=== PATIENT | female | born 1980 | race Caucasian/White ===

== ENCOUNTER 2020-10-23 13:20 | Outpatient (REF) | payer OTHER, SELFPAY ==
[2020-10-24 15:36] LABS: C. trachomatis RNA TMA NOT DETECTED (NOT DETECTED); N. gonorrhoeae RNA TMA NOT DETECTED (NOT DETECTED)
[2020-10-26 06:12] LABS: HPV mRNA E6/E7 rflx Not Detected (Not Detected)
== END 2020-10-23 13:21 | disposition home or self-care (01) ==
LOC: HO.LAB 13:20
PROVIDERS: PCP Hospitalist; Visit Provider Advanced Practice Midwife
DX: Z01.419 Encounter for gynecological examination (general) (routine) without abnormal findings (principal); Z11.51 Encounter for screening for human papillomavirus (HPV); E66.9 Obesity, unspecified; Z68.32 Body mass index [BMI] 32.0-32.9, adult; Z20.2 Contact with and (suspected) exposure to infections with a predominantly sexual mode of transmission
CPT/HCPCS: 36415; 87491; 87591; 87624; 88142

== ENCOUNTER 2021-07-01 10:53 | Outpatient (REF) | payer OTHER, SELFPAY ==
[2021-07-01 14:28] LABS: Anion Gap 11 (12-20); Blood Urea Nitrogen 13 mg/dL (9-16); Calcium 9.2 mg/dL (8.4-10.2); Carbon Dioxide 28 mmol/L (22-29); Chloride 106 mmol/L (96-108); Estimated Glomerular Filt Rate > 60; Glucose Random 101 mg/dL (60-115); Potassium 4.5 mmol/L (3.3-5.1); Sodium 140 mmol/L (135-145)
== END 2021-07-01 10:54 | disposition home or self-care (01) ==
LOC: HO.WFDLDS 10:53
PROVIDERS: Visit Provider Hospitalist
DX: Z00.00 Encounter for general adult medical examination without abnormal findings (principal)
CPT/HCPCS: 36415; 80048

== ENCOUNTER → 2021-10-27 14:24 | Outpatient (BNVA) | payer OTHER, SELFPAY | PROVIDERS: Visit Provider Advanced Practice Midwife ==

== ENCOUNTER 2021-11-27 12:37 | Outpatient (REF) | payer OTHER, SELFPAY ==
--- NOTE | ~2021-11-27 | MM_ITS ---
EXAMINATION: MM SCREENING DIGITAL BREAST TOMOSYNTHESIS, BILATERAL CLINICAL INFORMATION: Screening. Asymptomatic. The lifetime risk of breast cancer based on the Tyrer-Cuzick Model is 14.6%. COMPARISON: Mammography: June 22, 2019 TECHNIQUE: Digital breast tomosynthesis is performed in both the craniocaudal and mediolateral oblique views along with computer-aided detection (CAD). Synthesized 2D images are generated from the tomosynthesis. FINDINGS: The breasts are heterogeneously dense, which may obscure small masses (ACR BI-RADS breast composition Category c). There are no significant masses, abnormal calcifications, or other abnormalities. MM/MM tomosynthesis screening BI IMPRESSION: There are no significant changes from prior study. ASSESSMENT: BI-RADS 1: Negative RECOMMENDATION: Routine annual mammography screening. This patient's information was entered into a reminder system with a target due date for their next mammogram.
== END 2021-11-27 12:38 | disposition home or self-care (01) ==
LOC: HO.MAMMO 12:37
PROVIDERS: PCP Hospitalist; Visit Provider Advanced Practice Midwife
DX: Z12.31 Encounter for screening mammogram for malignant neoplasm of breast (principal)
CPT/HCPCS: 77063; 77067

== ENCOUNTER → 2022-10-29 13:01 | Outpatient (BNVA) | payer OTHER, SELFPAY | PROVIDERS: PCP Hospitalist; Visit Provider Advanced Practice Midwife ==

== ENCOUNTER 2022-12-04 13:48 | Outpatient (REF) | payer OTHER, SELFPAY ==
--- NOTE | ~2022-12-04 | MM_ITS ---
EXAMINATION: MM SCREENING DIGITAL BREAST TOMOSYNTHESIS, BILATERAL CLINICAL INFORMATION: Screening. Asymptomatic. The lifetime risk of breast cancer based on the Tyrer-Cuzick Model is 13%. COMPARISON: Mammography: November 27, 2021 and June 22, 2019 TECHNIQUE: Digital breast tomosynthesis is performed in both the craniocaudal and mediolateral oblique views along with computer-aided detection (CAD). Synthesized 2D images are generated from the tomosynthesis. FINDINGS: The breasts are heterogeneously dense, which may obscure small masses (ACR BI-RADS breast composition Category c). There are no significant masses, abnormal calcifications, or other abnormalities. MM/MM tomosynthesis screening BI IMPRESSION: No significant changes from prior exam. ASSESSMENT: BI-RADS 1: Negative RECOMMENDATION: Routine annual mammography screening. This patient's information was entered into a reminder system with a target due date for their next mammogram.
== END 2022-12-04 13:49 | disposition home or self-care (01) ==
LOC: HO.MAMMO 13:48
PROVIDERS: PCP Hospitalist; Visit Provider Hospitalist
DX: Z12.31 Encounter for screening mammogram for malignant neoplasm of breast (principal)
CPT/HCPCS: 77063; 77067

== ENCOUNTER 2023-12-10 09:54 | Outpatient (AMB) | payer OTHER, SELFPAY ==
--- NOTE | 2023-12-10 10:01 | MHC.OFFVIS ---
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 Doing well with concerns: Urgency and incontinence. She tries to eat healthy and stays active with exercise. Using a Mirena IUD since 06/06/2018. Currently is not sexually active. She denies vaginal itching and irritation. STI screening offered; she declines. Denies family history of breast, ovarian or colon cancer. Last pap smear 2020, negative. Mammogram: 2022. [facility] Medical History Hypertension Obesity (BMI 30-39.9) Surgical History No pertinent past surgical history Family History Family/Other HTN (hypertension) Social History Household Members Other:: daughter Housing: Apartment Alcohol intake: never Patient Tobacco Use Status: Never used Tobacco e-Cigarette/Vaping Use: Never Used Second Hand Smoke Exposure: No Use of substances other than those prescribed or required for medical reasons: Yes Substance Use Type: Marijuana Substance Use Frequency: Daily service: No Current occupational status: unemployed Sexually active: No Sexual orientation: Straight/Heterosexual Gender identity: Female Cognitive needs: No Hearing needs: No Vision needs: No Female Reproductive History Menstrual Age of Menarche: 10 control method: progestin IUCD (Mirena 06/06/2018) Total pregnancies: 4 Full term: 1 Number of Living Children: 1 Ab induced: 2 Ab spontaneous: 1 Date of last pap smear: 10/24/20 Date of Mammogram: 12/04/22 Review of Systems Const All systems reviewed & are unremarkable except as noted in HPI and below Reports as per HPI Eyes Reports no additional complaints ENT Reports no additional complaints Card Reports no additional complaints Resp Reports no additional complaints GI Reports as per HPI and Reports no additional complaints Reports as per HPI Musc Reports no additional complaints Skin/Breast Reports as per HPI Neuro Reports no additional complaints Psych Reports no additional complaints Endo Reports no additional complaints Brady/Lymph Reports no additional complaints Aller/Immun Reports no additional complaints Physical Exam Vital Signs: Last Vital Signs BP 136/80 12/10/23 10:04 BMI result Body Mass Index 32.9 Const General: cooperative, healthy appearing, no acute distress, well developed and alert Orientation/consciousness: patient oriented x3 HEENT Head: Yes normal to inspection Eyes General: appearance normal, both eyes and all related structures Neck Neck: Yes normal visual inspection Thyroid: Thyroid normal Chest Chest palpation & inspection: normal inspection of the chest and other (no puckering, dimpling, peau de orange, retraction, discharge, masses) Breast/axilla inspection: normal inspection of the breasts Breast/axilla palpation: normal palpation of the breasts Resp Effort & Inspection: normal respiratory effort GI Inspection: Yes normal to inspection Palpation (GI): Soft to palpation Rectal Exam - Female: deferred General: Yes bladder normal to palpation External Female Exam: normal external appearance and normal appearance of the urethra Speculum Exam - Vagina: normal appearance of the vagina, normal palpation and normal vaginal discharge Speculum Exam - Cervix: normal appearance of the cervix, normal palpation and Other cervical findings present (IUD strings present) Bimanual exam- vagina & uterus: normal bimanual exam, normal palpation, uterine size normal, bladder normal to palpation, normal palpation and non-tender Bimanual Exam- Adnexa, other: no masses Skin General skin exam: no rashes or lesions noted Rashes: no rashes Neuro General: patient oriented x3 Cognition (Neuro): normal cognition Extrem General: Yes normal to inspection Psych Attitude: cooperative Thought process: Normal thought process present Assessment & Plan Assessment & Plan (1) Encounter for well woman exam with routine gynecological exam: Code(s): Z01.419 - Encounter for gynecological examination (general) (routine) without abnormal findings (2) Urge incontinence of urine: Code(s): N39.41 - Urge incontinence Plan Discussed: Current recommendations for pap smears per ASCCP guidelines. Breast awareness and periodic breast exams. Maintain a healthy lifestyle including a well balanced diet and routine exercise. Use condoms for STI and prevention. Mammogram yearly. Referred to urology for assessment of urge incontinence, also discussed consideration for pelvic floor PT in the future. Patient verbalizes understanding and agrees to the plan of care. She was given opportunity to ask questions and all questions were answered to the best of my ability. 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 This note is constructed using voice recognition software. While every effort has been made to ensure accuracy, recruitment advertising manager errors may have been included. Orders: Referrals Urology Referral N39.41 - Urge incontinence
[2023-12-10 10:04] VITALS: BP 136/80; BMI 32.9
== END 2023-12-10 10:30 | disposition home or self-care (01) ==
PROVIDERS: Visit Provider Advanced Practice Midwife
DX: Z01.419 Encounter for gynecological examination (general) (routine) without abnormal findings (principal); N39.41 Urge incontinence
CPT/HCPCS: 99396

== ENCOUNTER 2023-12-10 14:06 | Outpatient (REF) | payer OTHER, SELFPAY | END 2023-12-10 14:07 | disposition home or self-care (01) | LOC: HO.MAMMO 14:06 | PROVIDERS: PCP Family Medicine; Visit Provider Hospitalist | DX: Z12.31 Encounter for screening mammogram for malignant neoplasm of breast (principal) | CPT/HCPCS: 77063; 77067; 99396 ==

== ENCOUNTER → 2023-12-10 14:15 | Outpatient (BNV) | payer OTHER, SELFPAY | PROVIDERS: PCP Family Medicine; Visit Provider Radiology Diagnostic Radiology | DX: Z12.31 Encounter for screening mammogram for malignant neoplasm of breast (principal) | CPT/HCPCS: 77063; 77067 ==

== ENCOUNTER 2023-12-14 11:19 | Outpatient (AMB) | payer OTHER, SELFPAY ==
--- NOTE | 2023-12-14 11:21 | MHC.PC.OV ---
Vital Signs 12/14/23 11:22 Height 5 ft 3 in Weight 186 lb 8 oz BMI 33.0 BP 132/80 Blood Pressure Location Lt brachial Position Sitting Pulse 92 Pulse Source Pulse Oximeter Pulse Oximetry (%) 98 Oxygen Delivery Method Room Air Intake Visit Reasons: Transfer of care SV , HTN Intake Note: Patient is here to follow up on HTN and medication refill. Basket Mender Required: No Clinical Nursing Director: Not Required per policy Accompanied by: Self / Same As Patient Allergies lisinopril Allergy (Intermediate, Verified 12/14/23 11:25) cough Medication List - Last Reconciled 12/14/23 by Segundo Wan MD amlodipine 10 mg PO DAILY 3 months blood pressure test kit-medium to take blood pressure daily hydralazine 25 mg PO QID PRN levonorgestrel (Mirena) intrauterine losartan 100 mg PO DAILY Tobacco use date assessed: 12/14/23 Dental Screening Dental Screen Date: 12/14/23 Did you have a dental visit in the last 12 months?: No Did you have a dental problem in the last 6 months where you did not have access to dental care?: No Was dental information given to patient?: Patient declined HPI Transfer of care SV , HTN HPI Details Transfer of Care Prior PCP:?SV Last office visit/CPE: Acute issue(s): Depression/anxiety HTN -BP today 132/80. She is on amlodipine 10mg, losartan 100mg daily. PMHx: Hypertension, depression/anxiety SurgHx: L foot, Oral surgeries FHx: Mom: Lymphoma. Dad: Unknown. SocHx: Nonsmoker, EtOH None/rare. MJ Daily No other drugs HPI Comments History of Present Illness Details Documentation assistance for Segundo Wan MD, was provided by Baldo Olmos,? Campaign Consultant on 12/14/2023 11:34 AM ALECIA. Rj, Dr. Wan, have read, observed, and verified documentation. [facility] Medical History (Updated 12/14/23 @ 11:59 by Baldo Olmos) Hypertension Obesity (BMI 30-39.9) Surgical History No pertinent past surgical history Family History Family/Other HTN (hypertension) Social History Household Members Other:: daughter Housing: Apartment Alcohol intake: never Patient Tobacco Use Status: Never used Tobacco e-Cigarette/Vaping Use: Never Used Second Hand Smoke Exposure: No Substance Use Type: Marijuana service: No Current occupational status: unemployed Sexual orientation: Straight/Heterosexual Gender identity: Female Cognitive needs: No Hearing needs: No Vision needs: No Female Reproductive History Menstrual Age of Menarche: 10 Questionnaire PHQ-9 Over the last 2 weeks, how often have you been bothered by any of the following problems? 1. Little interest or pleasure in doing things: more than half the days 2. Feeling down, depressed, or hopeless: several days 3. Trouble falling or staying asleep, or sleeping too much: several days 4. Feeling tired or having little energy: more than half the days 5. Poor appetite or overeating: more than half the days 6. Feeling bad about yourself - or that you are a failure or have let yourself or your family down: several days 7. Trouble concentrating on things, such as reading the newspaper or watching television: not at all 8. Moving or speaking so slowly that other people could have noticed. Or the opposite - being so fidgety or restless that you have been moving around a lot more than usual: not at all 9. Thoughts that you would be better off or of hurting yourself in some way: not at all Total score: 9 Depression Screening Interpretation: Positive (Referred?for?therapy) Depression Screening Done: Yes 24688 - PHQ-9 Billing: Yes Source: Developed by Drs. Mark Anthony Hopper, Libby Hinojosa, Brayan Seals and colleagues, with an educational marcial from [employer]. Thrive Questionnaire Date Thrive assessed: 12/14/23 I am a: Patient What is your living situation today?: I have a steady place to live Within the past 12 months, did the food you bought not last and you didn't have the money to get more?: Never true Within the past 12 months, did you worry whether your food would run out before you got money to buy more?: Never true Do you have trouble paying for medicines?: No Do you have trouble getting transportation to medical appointments?: No Do you have trouble paying your heating and electricity bill?: No Do you have trouble taking care of your child, family member or friend?: No Do you have trouble with day-to-day activities such as bathing, preparing meals, shopping, managing finances, etc.?: No Are you currently unemployed and looking for a job?: Yes Are you interested in more education?: No THRIVE Score: 0 AUDIT C Alcohol Use Questionnaire (AUDIT-C) 1. How often do you have a drink containing alcohol?: Never 3. How often do you have six or more drinks on one occasion?: Never Total Score: 0 GILBERT-7 AMB Questionnaire GILBERT-7 Date GILBERT - 7 assessed: 12/14/23 Feeling nervous, anxious, or on edge: 0 = Not at all Not being able to stop or control worryin = Several days Worrying too much about different things: 2 = More than half the days Trouble relaxin = Not at all Being so restless that it is hard to sit still: 0 = Not at all Becoming easily annoyed or irritable: 0 = Not at all Feeling afraid as if something awful might happen: 0 = Not at all Total GILBERT-7 score (0-4 normal; 5-9 mild; 10-14 moderate; 15-21 severe): 3 Source: Developed by Drs. Mark Anthony Hopper, Libby Hinojosa, Brayan Seals and colleagues, with an educational marcial from [employer]. GILBERT-7 Assessment Billing GILBERT-7 Assessment Tool: GILBERT-7 Assessment 57026 Review of Systems Const Denies chills, Denies fatigue, Denies fever(s), Denies headache(s) and Denies weakness ENT Denies dizziness and Denies headache(s) Card Denies chest pain, Denies lightheadedness, Denies dyspnea and Denies other (Palpitations) Resp Denies cough, Denies dyspnea, Denies wheezing and Denies other ( shortness of breath) Musc Denies numbness and Denies tingling Neuro Denies dizziness, Denies headache(s), Denies numbness, Denies tingling, Denies paresthesias and Denies weakness Psych Reports anxiety and Reports depression Endo Denies fatigue Aller/Immun Denies wheezing Physical exam (Primary Care) Vital Signs: Last Vital Signs Pulse 92 12/14/23 11:22 BP 132/80 12/14/23 11:22 Pulse Ox 98 12/14/23 11:22 Oxygen Delivery Method Room Air 12/14/23 11:22 BMI result Body Mass Index 33.0 Tobacco/Smoking Status: Tobacco use Status Tobacco use date assessed 12/14/23 12/14/23 11:34 Patient Tobacco Use Status Never used Tobacco 12/14/23 11:21 e-Cigarette/Vaping Use Never Used 12/14/23 11:21 PHQ-9: PHQ-9 Score PHQ-9: Total score 9 12/14/23 11:43 Depression Screening Interpretation: Positive (Referred?for?therapy) Thrive Assessment: Date of Thrive Assessment Date Thrive assessed 12/14/23 12/14/23 11:34 Const General: no acute distress and well developed Nutritional Appearance: well nourished Orientation/consciousness: patient oriented x3 HENMT Head: Yes normocephalic and Yes atraumatic Eyes General: appearance normal, both eyes and all related structures Pupils: Equal, round and reactive pupils present EOM: EOMs intact bilaterally Resp Effort & Inspection: normal respiratory effort Auscultation: clear to auscultation bilaterally Cardio Rate: regular rate Rhythm: regular rhythm Heart sounds: S1 normal heart sound present, S2 normal heart sound present, no gallops, Murmur heart sound present and no rubs Neuro General: patient oriented x3 and gait normal Cranial nerves: Yes Equal, round and reactive pupils present Psych Affect: normal affect Assessment and Plan Assessment & Plan (1) Hypertension: Code(s): I10 - Essential (primary) hypertension Plan: Blood?pressure?is?controlled.??Goal?is?less?than?140/90 Continue?current?medication (2) Depression with anxiety: Code(s): F41.8 - Other specified anxiety disorders Plan: Intermittent?fluctuations?in?mood?and?mild?depression?and?anxiety?at?times. She?does?note?some?avoid?behavior?when?driving. Will?refer?her?to?the?nurse?navigator?to?connect?her?with?a?therapist (3) Heart murmur: Code(s): R01.1 - Cardiac murmur, unspecified Plan: Faint?2/6?systolic?murmur?over?mitral?region Check?echo (4) Laboratory exam ordered as part of routine general medical examination: Code(s): Z00.00 - Encounter for general adult medical examination without abnormal findings Plan: Check?lab Orders: Orders Comprehensive [place]. Panel Fast Today Z00.00 - Encounter for general adult medical examination without abnormal findings Microalbumin, Random (w Creat) Today I10 - Essential (primary) hypertension TSH reflex Free T4 Today Z00.00 - Encounter for general adult medical examination without abnormal findings UA and rflx microscopic Today Z00.00 - Encounter for general adult medical examination without abnormal findings Lipid Panel Today Z00.00 - Encounter for general adult medical examination without abnormal findings CA echo transthoracic complete Today R01.1 - Cardiac murmur, unspecified Medications: Changed From amlodipine 10 mg PO DAILY 3 months 30 tabs 0RF I10 - Essential (primary) hypertension To amlodipine 10 mg PO DAILY 90 days 90 tabs 3RF I10 - Essential (primary) hypertension From losartan 100 mg PO DAILY 30 tabs 0RF I10 - Essential (primary) hypertension To losartan 100 mg PO DAILY 90 days 90 tabs 3RF I10 - Essential (primary) hypertension Discontinued hydralazine Discontinued Reason: Doctor's Order 25 mg PO QID PRN 120 tabs 5RF for blood pressure Coding Level of Care Code Est Pt Level 3 (51213) Diagnoses Hypertension I10 Depression with anxiety F41.8 Heart murmur R01.1 Laboratory exam ordered as part of routine general medical examination Z00.00 Additional Codes GILBERT-7 Assessment Billing - GILBERT-7 Assessment Tool: GILBERT-7 Assessment [id number] ([id number])
[2023-12-14 11:22] VITALS: BP 132/80; PULSE 92; O2SAT 98; BMI 33.0
== END 2023-12-14 12:38 | disposition home or self-care (01) ==
PROVIDERS: PCP Family Medicine; Visit Provider Family Medicine
DX: I10 Essential (primary) hypertension (principal); R01.1 Cardiac murmur, unspecified; F41.8 Other specified anxiety disorders
CPT/HCPCS: 96127; 99213

== ENCOUNTER → 2024-01-06 09:56 | Outpatient (REF) | payer OTHER, SELFPAY ==
--- NOTE | 2024-01-06 09:58 | CA_ITS ---
Transthoracic Echocardiogram Patient (Last, First, Middle): SusanMay, Gender: Female Date of : 1980 Age: 43 Procedure Date: 01/06/2024 Procedure Type: Transthoracic Echocardiogram Location: OP Height: 160.02 cm Weight: 83.46 kg BSA: 1.87 m2 Heart Rate: 85 bpm BP: 112 / 78 mmHg Document Restorer: DREW Referring MD: Segundo Wan MD Edger Liner: Sudeep Diaz MD Symptoms: R01.1 - Cardiac murmur, unspecified Study Quality: Adequate ECG Rhythm: Sinus Conclusions: - Essentially normal study Findings Left Ventricle Normal left ventricular size, thickness, and systolic function. The visually estimated ejection fraction is between 60-65%. Spectral Doppler is indicative of a normal filling pattern. Peak GLS is -20.5%, within normal limits. Right Ventricle Normal right ventricular cavity size and systolic function. Atria Both atria are normal in size. Interatrial shunt cannot be excluded. Aortic Valve Normal aortic valve structure and function. There is no aortic valve stenosis. There is no aortic valve regurgitation. Mitral Valve Normal mitral valve structure and function. There is trace mitral valve regurgitation. There is no mitral valve stenosis. Pulmonic Valve The pulmonic valve is likely normal. Tricuspid Valve Normal tricuspid valve structure. Tricuspid regurgitation envelope is inadequate for calculation of right ventricular systolic pressure. Normal right atrial pressure. There is no evidence of pulmonary hypertension. Great Vessels All visible segments of the aorta are normal in size. The pulmonary artery was not well visualized. Venous The inferior vena cava is normal in size and collapses greater than 50% with inspiration. Pericardium/Pleural There is no evidence of pericardial effusion. Prior Study Comparison No prior study available for comparison. Measurements 2D Linear Measurements IVSd: 0.86 0.6-0.9/0.6-1.0 cm LVIDd: 4.44 3.9-5.3/4.2-5.9 cm LVIDd Index: 2.37 2.4-3.2/2.2-3.1 cm/m2 LVIDs: 2.91 2.0-3.6 cm LVPWd: 0.53 0.7-1.1 cm LA Diam: 3.10 2.7-3.8/3.0-4.0 cm LAIDs Index: 1.66 1.5-2.3 cm/m2 LV Mass: 115.05 67-162/88-224 g LV Mass Index: 61.53 43-95/49-115 g/m2 LVOT Diam: 2.00 3.0+(-)1.3 cm 2D Systolic Function EF 4C: 45.10 >55% EF 2C: 65.30 >55% EF BiP: 57.50 >55% Mitral Valve MV Pk E: 0.81 MV PK A: 0.70 MV Decel Time: 149.00 E/A: 1.20 E'Lateral: 10.90 E'Medial: 8.38 E/E' Med: 9.60 E/E' Lat: 7.40 PHT: 44.00 MVA PHT: 5.00 Decel Gregg: 5.39 Aortic Valve AoV Pk Desmond: 1.34 AoV Pk Grad: 7.00 LEXIS: 2.79 LVOT LVOT Pk Desmond: 1.16 LVOT Mn Desmond: 0.74 LVOT VTI: 0.23 LVOT Pk Grad: 5.00 LVOT Mn Grad: 3.00 LVOT Diam: 2.00 LVOT Area: 3.14 Diastolic Function MV Pk E: 0.81 MV Pk A: 0.70 E/A: 1.20 E'Medial: 8.38 E/E' Med: 9.60 E' Laterial: 10.90 E/E' Lat: 7.40 Right Ventricle TAPSE (mm): 21.20 TVS' Desmond: 11.90 Tricuspid Valve RA Press: 3.00 Great Vessels Aorta Sinus of Valsalva: 3.10 2.0-3.5 cm Ao Asc: 3.30 2.1-3.4 cm Ao Arch: 2.30 Ao Desc: 1.50 Pulmonary Valve PV Pk Desmond: 1.03 Peak PV Grad: 4.00 Updated in Other Vendor System with Status of Final Sudeep Diaz MD electronically signed on 01/06/2024 7:03:05 PM with status of Final
== END ==
LOC: HO.CARD 09:56
PROVIDERS: Visit Provider Family Medicine
DX: R01.1 Cardiac murmur, unspecified (principal)
CPT/HCPCS: 93306; 93356

== ENCOUNTER → 2024-01-06 09:58 | Outpatient (BNV) | payer OTHER, SELFPAY | PROVIDERS: Visit Provider Internal Medicine Cardiovascular Disease | DX: R01.1 Cardiac murmur, unspecified (principal) | CPT/HCPCS: 93306; 93356 ==

== ENCOUNTER 2024-02-04 13:02 | Outpatient (AMB) | payer OTHER, SELFPAY ==
--- NOTE | 2024-02-04 13:01 | MHC.OFFVIS ---
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 Wan. She has a past medical history of hypertension and obesity. She presents to the office today as a new patient for stress incontinence/urge incontinence. In discussion with the patient today she reports symptoms have been present since having having her one and only child. She reports having had one vaginal of a full term baby. She reports however feels they are worsening since then. She reports previously following up with a urologist many years ago however was told everything was normal. She reports utilizing 1-3 pads daily. She otherwise denies nocturia, hematuria, dysuria, foul smelling urine, changes to urinary stream, flank pain, fever, and or chills. In office urinalysis results reviewed with the patient today. PVR 0 mL. Discussed at length potential causes of lower urinary tract symptoms patient is experiencing as well as further treatment options. Pelvic floor information provided. She otherwise denies any other issues or concerns at this time. [facility] Medical History Hypertension Obesity (BMI 30-39.9) Surgical History No pertinent past surgical history Family History Family/Other HTN (hypertension) Social History Household Members Other:: daughter Housing: Apartment Alcohol intake: never Patient Tobacco Use Status: Never used Tobacco e-Cigarette/Vaping Use: Never Used Second Hand Smoke Exposure: No Substance Use Type: Marijuana service: No Current occupational status: unemployed Sexual orientation: Straight/Heterosexual Gender identity: Female Cognitive needs: No Hearing needs: No Vision needs: No Female Reproductive History Menstrual Age of Menarche: 10 Review of Systems Const All systems reviewed & are unremarkable except as noted in HPI and below Reports as per HPI Eyes Reports no additional complaints ENT Reports no additional complaints Card Reports as per HPI Resp Reports no additional complaints GI Denies abdominal pain and Denies nausea Musc Denies no additional complaints Neuro Reports no additional complaints Physical Exam Const General: cooperative, healthy appearing, comfortable, no acute distress, well developed, alert and awake Orientation/consciousness: patient oriented x3 Limitations: no limitations HEENT Head: Yes normal to inspection, Yes normocephalic and Yes atraumatic Ears: hearing grossly normal bilaterally Eyes General: appearance normal, both eyes and all related structures Neck Neck: Yes normal visual inspection and Yes trachea midline Chest Chest palpation & inspection: normal inspection of the chest Resp Effort & Inspection: normal respiratory effort and able to speak in complete sentences Cardio Rate: regular rate GI Inspection: Yes normal to inspection General: Yes no CVA tenderness Back/Spine/Pelvis Back: no CVA tenderness Skin General skin exam: no rashes or lesions noted Neuro General: patient oriented x3 Extrem General: Yes normal to inspection Psych Appearance: grossly normal and well kempt Mental Status: mental status grossly normal Speech and movement: Normal speech and movement present and Clear speech present Affect: normal affect Attitude: cooperative Thought process: Normal thought process present Thought content: Normal thought content present Insight: Fair insight present (Psych) Judgement: Fair judgement present (Psych) Office Procedures Post Void Residual Post Residual Void Post Void Residual (PVR): 0 [id number] Void Residual by ultrasound Results AMB Urinalysis, Automated UA Leukoctes 0 Howard/uL Last Edit by [employer] on 02/04/24 13:35 UA Nitrite Negative Last Edit by [employer] on 02/04/24 13:35 UA Urobilinogen 0.2 mg/dL Last Edit by [employer] on 02/04/24 13:35 UA Protein 0 mg/dL Last Edit by [employer] on 02/04/24 13:35 UA pH 8.0 Last Edit by [employer] on 02/04/24 13:35 UA Blood 0 Zachary/uL Last Edit by [employer] on 02/04/24 13:35 UA Specific Huggins 1.010 Last Edit by Domonique Gan on 02/04/24 13:35 UA Ketone Negative Last Edit by Domonique Gan on 02/04/24 13:35 UA Bilirubin 0 mg/dL Last Edit by Domonique Gan on 02/04/24 13:35 UA Glucose 0 mg/dL Last Edit by Domonique Gan on 02/04/24 13:35 Results Reviewed Results Reviewed: Laboratory Last Values Urine pH (Auto) 8.0 02/04/24 13:27 Specific Huggins (Auto) 1.010 02/04/24 13:27 Urine Protein (Auto) 0 mg/dL 02/04/24 13:27 Glucose (UA)(Auto) 0 mg/dL 02/04/24 13:27 Urine Ketones (Auto) Negative 02/04/24 13:27 Urine Blood (Auto) 0 Zachary/uL 02/04/24 13:27 Urine Nitrite (Auto) Negative 02/04/24 13:27 Urine Bilirubin (Auto) 0 mg/dL 02/04/24 13:27 Urine Urobilinogen (Auto) 0.2 mg/dL 02/04/24 13:27 Leukocyte Esterase (Auto) 0 Howard/uL 02/04/24 13:27 Assessment & Plan Assessment & Plan (1) Mixed incontinence urge and stress: Code(s): N39.46 - Mixed incontinence Category: Medical Plan In office urinalysis results reviewed with the patient today; as noted above. PVR 0 mL. Discussed at length potential causes for lower urinary tract symptoms patient is experiencing as well as further treatment options; this was discussed at length. Will obtain retroperitoneal ultrasound for further assessment evaluation. Information provided for pelvic floor therapies. Discussed bladder triggers/irritants. Start oxybutynin as discussed and prescribed. Discussed possible near future in office cystoscopy and or urodynamics for further assessment evaluation. Follow-up in 1-3 months with imaging to be completed prior; or sooner with any issues, concerns, and or questions. Orders: Orders AMB Urinalysis Automated 02/04/24 Z13.9 - Encounter for screening, unspecified AMB Post Void Residual by ultrasound 02/04/24 Z13.9 - Encounter for screening, unspecified US retroperitoneal comp 02/04/24 N39.46 - Mixed incontinence Medications: New oxybutynin chloride ER 10 mg PO DAILY 30 tabs 3RF 30 days N32.81 - Overactive bladder Patient Instructions: The patient had an opportunity to ask questions regarding the treatment plan. All questions were answered. Physical exam, labs, and imaging were discussed and reviewed in detail. As well as risks, benefits, and discussion of treatment choices. No major barriers to understanding were identified. The patient expressed understanding and agreement with the above treatment plan. The patient was made aware they should contact our office by phone for worsening of their current condition, the appearance of new symptoms, or with any questions or concerns. Compliance is encouraged with any medications and follow up testing that is ordered. It is a privilege to be allowed the opportunity to participate in? your urological care.? Again, if you have any questions or concerns If you have any questions or concerns please do not hesitate to contact me. The office is [phone]. This note is constructed using voice recognition software. While every effort has been made to ensure accuracy framing and hanging errors may have been included. Yours sincerely, GALO Tripp-BIBIANA Coding Level of Care Code New Pt Level 4 (71358) Diagnoses Mixed incontinence urge and stress N39.46 CPT Codes Post Residual Void - PVR CPT Code: 98387-Dddt Void Residual by ultrasound ([id number])
== END 2024-02-04 13:40 | disposition home or self-care (01) ==
PROVIDERS: PCP Family Medicine; Visit Provider Nurse Practitioner Family
DX: N39.46 Mixed incontinence (principal)
CPT/HCPCS: 99204

== ENCOUNTER → 2024-02-04 13:02 | Outpatient (BNVA) | payer OTHER, SELFPAY | PROVIDERS: PCP Family Medicine; Visit Provider Nurse Practitioner Family | DX: N39.46 Mixed incontinence (principal); N32.81 Overactive bladder | CPT/HCPCS: 51798; 81003; 99202 ==

== ENCOUNTER 2024-03-06 08:51 | Outpatient (REF) | payer OTHER, SELFPAY ==
[2024-03-06 10:22] LABS: Alanine Aminotransferase 40 U/L (0-31); Albumin Level 4.5 g/dL (3.5-5.0); Alkaline Phosphatase 67 U/L (39-117); Anion Gap 13 (12-20); Aspartate Amino Transferase 21 U/L (5-31); Bilirubin Total 0.6 mg/dL (0.0-1.0); Blood Urea Nitrogen 12 mg/dL (9-16); Calcium 8.8 mg/dL (8.4-10.2); Carbon Dioxide 26 mmol/L (22-29); Chloride 107 mmol/L (96-108); Cholesterol 157 mg/dL (<200); Estimated Glomerular Filt Rate > 60; Glucose Fasting 118 mg/dL (60-99); HDL Cholesterol 46 mg/dL (>40); LDL Cholesterol Calculated 93 mg/dL (<100); Potassium 3.8 mmol/L (3.3-5.1); Sodium 142 mmol/L (135-145); Total Protein 7.2 g/dL (6.5-8.0); Triglycerides 91 mg/dL (<150)
[2024-03-06 10:26] LABS: TSH reflex Free T4 1.69 uIU/mL (0.32-4.0)
[2024-03-06 10:34] LABS: Appearance Urine Clear; Color Urine Yellow; Glucose Urine UA Negative (Negative); Leukocyte Esterase Urine Small (1+) (Negative); Nitrite Urine Negative (Negative); UMIC TRIGGER UA YES; Urine Blood Negative (Negative); Urine Ketones Negative (Negative); Urine Protein Negative (Neg-Trace)
[2024-03-06 10:50] LABS: Bacteria Urine 1+ (None Seen); Hyaline Casts Urine 0-2 /LPF (0-2); RBC Urine 0-2 /HPF (0-2); WBC Urine 0-5 /HPF (0-5)
[2024-03-06 11:13] LABS: Microalbum/Creatinine Ratio Ur 3.9 ug/mg cr (<30)
== END 2024-03-06 08:52 | disposition home or self-care (01) ==
LOC: HO.LAB 08:51
PROVIDERS: PCP Family Medicine; Visit Provider Family Medicine
DX: Z00.00 Encounter for general adult medical examination without abnormal findings (principal); I10 Essential (primary) hypertension
CPT/HCPCS: 36415; 80053; 80061; 81001; 82043; 82570; 84443

== ENCOUNTER 2024-03-09 13:40 | Outpatient (AMB) | payer OTHER, SELFPAY ==
[2024-03-09 13:45] VITALS: BP 118/70; PULSE 98; O2SAT 98; BMI 32.8
--- NOTE | 2024-03-09 13:45 | A.OFFPC_ITS ---
Vital Signs 03/09/24 13:45 Height 5 ft 3 in Weight 185 lb BMI 32.8 BP 118/70 Blood Pressure Location Lt brachial Position Sitting Pulse 98 Pulse Source Pulse Oximeter Pulse Oximetry (%) 98 Oxygen Delivery Method Room Air Intake Visit Reasons: Extended exam with f/u labs and health maint. Intake Note: Patient is here for extended exam and follow up on labs and health maintenance. Allergies lisinopril Allergy (Intermediate, Verified 03/09/24 13:50) cough Medication List - Last Reconciled 03/09/24 by Segundo Wan MD amlodipine 10 mg PO DAILY 90 days blood pressure test kit-medium to take blood pressure daily levonorgestrel (Mirena) intrauterine losartan 100 mg PO DAILY 90 days oxybutynin chloride ER 10 mg PO DAILY 30 days Tobacco use date assessed: 03/09/24 Dental Screening Dental Screen Date: 12/14/23 HPI Extended exam with f/u labs and health maint. HPI Details 43 y/o female presents for extended exam with f/u labs and health maintenance. Labs were drawn 03/06/24. Reviewed labs with pt. Elevated fasting glucose of 118. A1c today 03/09/24 5.9%. Elevated ALT of 40. Triglycerides 91. TC 157. LDL 93. HDL 46. Blood pressure today 118/70. She is on amlodipine 10mg daily. A1c today 03/09/24 is 5.9%. [facility] Medical History Hypertension Obesity (BMI 30-39.9) Surgical History No pertinent past surgical history Family History Family/Other HTN (hypertension) Social History Household Members Other:: daughter Housing: Apartment Alcohol intake: never Patient Tobacco Use Status: Never used Tobacco e-Cigarette/Vaping Use: Never Used Second Hand Smoke Exposure: No Substance Use Type: Marijuana service: No Current occupational status: unemployed Sexual orientation: Straight/Heterosexual Gender identity: Female Cognitive needs: No Hearing needs: No Vision needs: No Female Reproductive History Menstrual Age of Menarche: 10 Questionnaire Thrive Questionnaire Date Thrive assessed: 12/14/23 GILBERT-7 AMB Questionnaire GILBERT-7 Date GILBERT - 7 assessed: 12/14/23 Source: Developed by Drs. Mark Anthony Hopper, Libby Hinojosa, Brayan Seals and colleagues, with an educational marcial from [employer]. Review of Systems Const Denies chills, Denies fatigue, Denies fever(s), Denies headache(s) and Denies weakness Eyes Denies change in vision ENT Denies dizziness, Denies headache(s), Denies hearing loss, Denies nasal congestion, Denies sinus pain, Denies sinus pressure and Denies sore throat Card Denies chest pain, Denies lightheadedness, Denies dyspnea and Denies other (palpitations) Resp Denies cough, Denies dyspnea and Denies wheezing GI Denies abdominal pain, Denies melena, Denies hematochezia, Denies change in bowel habits, Denies dyspepsia and Denies nausea Denies hematuria and Denies dysuria Musc Denies abnormal gait, Denies myalgias, Denies arthralgias, Denies numbness and Denies tingling Skin/Breast Denies rash, Denies unusual bruising and Denies wounds Neuro Denies abnormal gait, Denies dizziness, Denies headache(s), Denies memory loss, Denies numbness, Denies Sensory deficit (Neuro), Denies tingling and Denies weakness Psych Denies anxiety, Denies depression and Denies memory loss Endo Denies cold intolerance, Denies fatigue, Denies heat intolerance, Denies polydipsia and Denies polyuria Brady/Lymph Denies easy bleeding and Denies easy bruising Aller/Immun Denies wheezing Physical exam (Primary Care) Vital Signs: Last Vital Signs Pulse 98 03/09/24 13:45 BP 118/70 03/09/24 13:45 Pulse Ox 98 03/09/24 13:45 Oxygen Delivery Method Room Air 03/09/24 13:45 BMI result Body Mass Index 32.8 Tobacco/Smoking Status: Tobacco use Status Tobacco use date assessed 03/09/24 03/09/24 13:55 Patient Tobacco Use Status Never used Tobacco 03/09/24 13:47 e-Cigarette/Vaping Use Never Used 03/09/24 13:47 Thrive Assessment: Date of Thrive Assessment Date Thrive assessed 12/14/23 03/09/24 13:47 Const General: no acute distress, well developed, alert and awake Nutritional Appearance: well nourished Orientation/consciousness: patient oriented x3 [facility] Head: Yes normocephalic and Yes atraumatic Ears: hearing grossly normal bilaterally and TM's normal bilaterally General nose exam: Normal external nose present and Normal nares present Mouth: Normal oral and palatal mucosa present and moist mucous membranes Teeth and gingiva: dentition normal Throat: Yes posterior oropharynx normal Eyes General: appearance normal, both eyes and all related structures Pupils: Equal, round and reactive pupils present and Pupil accommodation reflex normal EOM: EOMs intact bilaterally Neck Neck: Yes normal visual inspection, Yes no lymphadenopathy and Yes trachea midline Thyroid: Thyroid normal Carotids: no bruits Lymphatic: no lymphadenopathy noted Chest Chest palpation & inspection: normal inspection of the chest Resp Effort & Inspection: normal respiratory effort Auscultation: clear to auscultation bilaterally Cardio Rate: regular rate Rhythm: regular rhythm Heart sounds: S1 normal heart sound present, S2 normal heart sound present, no gallops, no murmurs and no rubs Bruits: no abdominal aortic bruits and no carotid bruits GI Palpation (GI): No Abdominal aortic bruit present, Soft to palpation, nontender, No hepatosplenomegaly present and No Rebound tenderness present Auscultation: normal bowel sounds General: Yes no CVA tenderness Back/Spine/Pelvis Back: no CVA tenderness Cervical Spine: cervical ROM normal and No Cervical spine tenderness Thoracic/Lumbar Spine: thoraco-lumbar ROM normal, No pain with thoraco-lumbar ROM, No thoracic spinal tenderness and No lumbar spinal tenderness Skin Lesions: no lesions Rashes: no rashes Trauma: no lacerations or abrasions Wounds: no wounds Nails: normal Neuro General: patient oriented x3 Cranial nerves: Yes Equal, round and reactive pupils present Cognition (Neuro): normal cognition Gait exam (Neuro): Normal gait present Motor exam (neuro): 5/5 motor strength present throughout Sensory Exam: No Sensory deficit (Neuro) Deep tendon reflexes (DTR's): Right patellar reflex intensity grade: 2+ and Left patellar reflex intensity grade: 2+ Extrem General: Yes normal to inspection and No edema Psych Appearance: grossly normal Affect: normal affect Attitude: cooperative Thought process: Normal thought process present Results AMB Hemoglobin A1c AMB Hemoglobin A1c 5.9 % Last Edit by Eunice Mora CMA on 03/09/24 14:40 Assessment and Plan Assessment & Plan (1) Hypertension: Code(s): I10 - Essential (primary) hypertension Plan: Blood?pressure?is?well?controlled.??Goal?is?less?than?140/90 Continue?current?medication (2) Elevated ALT measurement: Code(s): R74.01 - Elevation of levels of liver transaminase levels Plan: Mild?elevation?in?ALT Encouraged?weight?loss,?hydration Will?repeat?in?3?months If?levels?are?the?same?or?higher,?will?check?an?ultrasound (3) Decreased hearing: Code(s): H91.90 - Unspecified hearing loss, unspecified ear Plan: Referred?for?audiology?test (4) Screening for cervical cancer: Code(s): Z12.4 - Encounter for screening for malignant neoplasm of cervix Plan: Up-to-date Follow-up?with?[facility]?manager business process?as?recommended (5) Asymptomatic bacteriuria: Code(s): R82.71 - Bacteriuria Plan: Increase?hydration (6) Breast cancer screening by mammogram: Code(s): Z12.31 - Encounter for screening mammogram for malignant neoplasm of breast Plan: Mammogram?showed?no?evidence?of?malignancy Continue?annual?screen (7) Screening for colon cancer: Code(s): Z12.11 - Encounter for screening for malignant neoplasm of colon Plan: Patient?is?now?due?for?1st?screening?colonoscopy Referred?to?GI (8) Pre-diabetes: Code(s): R73.03 - Prediabetes Plan: A1c?5.9%.??Pre?diabetes. Encouraged?diet?lower?in?sugars?and?starches.??Encouraged?exercise (9) Adult general medical exam: Code(s): Z00.00 - Encounter for general adult medical examination without abnormal findings Plan: 43-year-old?female?presents?for?an?extended?exam Encouraged?healthy?diet?with?active?lifestyle?and?plenty?of?exercise Orders: Orders Hemoglobin A1c Today R73.01 - Impaired fasting glucose AMB Hemoglobin A1c Today Z13.9 - Encounter for screening, unspecified Comprehensive [place]. Panel Fast Today R74.01 - Elevation of levels of liver transaminase levels, Z00.00 - Encounter for general adult medical examination without abnormal findings Referrals Gastroenterology Referral Z12.11 - Encounter for screening for malignant neoplasm of colon Audiology Referral H91.90 - Unspecified hearing loss, unspecified ear Coding Level of Care Code Est Pt Level 4 (29168) Diagnoses Hypertension I10 Elevated ALT measurement R74.01 Decreased hearing H91.90 Screening for cervical cancer Z12.4 Asymptomatic bacteriuria R82.71 Breast cancer screening by mammogram Z12.31 Screening for colon cancer Z12.11 Pre-diabetes R73.03 Adult general medical exam Z00.00
== END 2024-03-09 14:45 | disposition home or self-care (01) ==
PROVIDERS: PCP Family Medicine; Visit Provider Family Medicine
DX: Z00.00 Encounter for general adult medical examination without abnormal findings (principal); I10 Essential (primary) hypertension; R74.01 Elevation of levels of liver transaminase levels; R73.03 Prediabetes; R82.71 Bacteriuria; Z12.31 Encounter for screening mammogram for malignant neoplasm of breast; Z12.11 Encounter for screening for malignant neoplasm of colon
CPT/HCPCS: 83036; 99396

== ENCOUNTER 2024-04-04 13:29 | Outpatient (REF) | payer OTHER, SELFPAY ==
--- NOTE | ~2024-04-04 | US_ITS ---
EXAMINATION: US RETROPERITONEAL COMPLETE (RENAL) CLINICAL INFORMATION: Mixed incontinence. COMPARISON: None available. TECHNIQUE: Real-time imaging of the kidneys and bladder. FINDINGS: RIGHT KIDNEY: 11.8 x 3.9 x 4.7 cm (SAG x AP x TRV). The kidney is normal in size, contour, and echogenicity. Renal cortical thickness is normal. No calculi or focal parenchymal lesions. No hydronephrosis. LEFT KIDNEY: 12.0 x 6.2 x 4.4 cm (SAG x AP x TRV). The kidney is normal in size, contour, and echogenicity. Renal cortical thickness is normal. No calculi or focal parenchymal lesions. No hydronephrosis. BLADDER: Well distended and normal. Bilateral ureteral jets are demonstrated. Prevoid bladder volume is 308 mL. Postvoid bladder volume is 39.0 mL. US/US retroperitoneal comp IMPRESSION: 1. Normal ultrasound of the bilateral kidneys. 2. Small post void residual volume in the urinary bladder. Electronically signed by: Darrius Meza MD 04/27/2024 08:36 PM EDT
== END 2024-04-04 13:30 | disposition home or self-care (01) ==
LOC: HO.US 13:29
PROVIDERS: PCP Family Medicine; Visit Provider Nurse Practitioner Family
DX: N39.46 Mixed incontinence (principal)
CPT/HCPCS: 76770

== ENCOUNTER 2024-04-12 08:55 | Outpatient (REF) | payer OTHER, SELFPAY | END 2024-04-12 08:56 | disposition home or self-care (01) | LOC: HO.SH 08:55 | PROVIDERS: Visit Provider Family Medicine | DX: Z01.118 Encounter for examination of ears and hearing with other abnormal findings (principal); H93.293 Other abnormal auditory perceptions, bilateral | CPT/HCPCS: 92557 ==

== ENCOUNTER 2024-04-18 13:45 | Outpatient (AMB) | payer OTHER, SELFPAY ==
--- NOTE | 2024-04-18 13:48 | MHC.OFFVIS ---
Intake Visit Reasons: 2m/U/S(set) Intake Note: Patient presents today for follow visit to establish treatment for : incontinence and Ultrasound Results Imaging Completed: 04/04/24 Urology Medications: Oxybutynin Allergies to Antibiotic: none Blood Thinner: none PVR: 0ml's Practice Managers Required: No Accompanied by: Self / Same As Patient Allergies lisinopril Allergy (Intermediate, Verified 04/18/24 14:20) cough Medication List - Last Reconciled 04/18/24 by EUGENE Tripp amlodipine 10 mg PO DAILY 90 days blood pressure test kit-medium to take blood pressure daily levonorgestrel (Mirena) intrauterine losartan 100 mg PO DAILY 90 days mirabegron ER (Myrbetriq) 25 mg PO DAILY 30 days HPI Comments Details: Marilee is a very pleasant 43-year-old female patient of Dr. Wan who was accompanied by her daughter at today's office visit. She has a past medical history of hypertension and obesity. She presents to the office today for follow-up. Of note, patient was seen approximately 2 months ago as a new patient for stress incontinence/urge incontinence at which time a retroperitoneal ultrasound was ordered for further assessment evaluation in the patient was started on 10 mg of oxybutynin daily. In discussion with the patient today she reports noting somewhat improvement in urinary frequency however still continues with bothersome urinary frequency, urinary urgency, and mixed urinary incontinence. Recent retroperitoneal ultrasound results reviewed with the patient today. Bilateral kidneys with no calculi, lesions, and or hydronephrosis. The bladder is well distended and normal. Bladder jets are demonstrated. Pre void bladder volume is approximately 300 mL. Postvoid bladder volume is approximately 40 mL. She continues utilizing 1-3 pads daily. She otherwise denies nocturia, hematuria, dysuria, foul smelling urine, changes turinary stream, flank pain, fever, and or chills. In office urinalysis results reviewed with the patient today. PVR 0 mL. Discussed at length potential causes of lower urinary tract symptoms patient is experiencing as well as further treatment options. Pelvic floor information provided. She otherwise denies any other issues or concerns at this time. [facility] Medical History Hypertension Obesity (BMI 30-39.9) Surgical History No pertinent past surgical history Family History Family/Other HTN (hypertension) Social History Household Members Other:: daughter Housing: Apartment Alcohol intake: never Patient Tobacco Use Status: Never used Tobacco e-Cigarette/Vaping Use: Never Used Second Hand Smoke Exposure: No Substance Use Type: Marijuana service: No Current occupational status: unemployed Sexual orientation: Straight/Heterosexual Gender identity: Female Cognitive needs: No Hearing needs: No Vision needs: No Female Reproductive History Menstrual Age of Menarche: 10 Review of Systems Const All systems reviewed & are unremarkable except as noted in HPI and below Reports as per HPI Eyes Reports no additional complaints ENT Reports no additional complaints Card Reports as per HPI Resp Reports no additional complaints GI Denies abdominal pain and Denies nausea Musc Denies no additional complaints Neuro Reports no additional complaints Physical Exam Const General: cooperative, healthy appearing, comfortable, no acute distress, well developed, alert and awake Orientation/consciousness: patient oriented x3 Limitations: no limitations HEENT Head: Yes normal to inspection, Yes normocephalic and Yes atraumatic Ears: hearing grossly normal bilaterally Eyes General: appearance normal, both eyes and all related structures Neck Neck: Yes normal visual inspection and Yes trachea midline Chest Chest palpation & inspection: normal inspection of the chest Resp Effort & Inspection: normal respiratory effort and able to speak in complete sentences Cardio Rate: regular rate GI Inspection: Yes normal to inspection General: Yes no CVA tenderness Back/Spine/Pelvis Back: no CVA tenderness Skin General skin exam: no rashes or lesions noted Neuro General: patient oriented x3 Extrem General: Yes normal to inspection Psych Appearance: grossly normal and well kempt Mental Status: mental status grossly normal Speech and movement: Normal speech and movement present and Clear speech present Affect: normal affect Attitude: cooperative Thought process: Normal thought process present Thought content: Normal thought content present Insight: Fair insight present (Psych) Judgement: Fair judgement present (Psych) Office Procedures Post Void Residual Post Residual Void Post Void Residual (PVR): 0 [id number] Void Residual by ultrasound Results AMB Urinalysis, Automated UA Leukoctes 0 Howard/uL Last Edit by Domonique Gan on 04/18/24 14:17 UA Nitrite Negative Last Edit by [employer] on 04/18/24 14:17 UA Urobilinogen 0.2 mg/dL Last Edit by [employer] on 04/18/24 14:17 UA Protein 15 mg/dL Last Edit by [employer] on 04/18/24 14:17 UA pH 6.0 Last Edit by [employer] on 04/18/24 14:17 UA Blood 0 Zachary/uL Last Edit by [employer] on 04/18/24 14:17 UA Specific Mission 1.025 Last Edit by [employer] on 04/18/24 14:17 UA Ketone Negative Last Edit by [employer] on 04/18/24 14:17 UA Bilirubin 0 mg/dL Last Edit by [employer] on 04/18/24 14:17 UA Glucose 0 mg/dL Last Edit by [employer] on 04/18/24 14:17 Results Reviewed Results Reviewed: Laboratory Last Values Urine pH (Auto) 6.0 04/18/24 14:16 Specific Mission (Auto) 1.025 04/18/24 14:16 Urine Protein (Auto) 15 mg/dL 04/18/24 14:16 Glucose (UA)(Auto) 0 mg/dL 04/18/24 14:16 Urine Ketones (Auto) Negative 04/18/24 14:16 Urine Blood (Auto) 0 Zachary/uL 04/18/24 14:16 Urine Nitrite (Auto) Negative 04/18/24 14:16 Urine Bilirubin (Auto) 0 mg/dL 04/18/24 14:16 Urine Urobilinogen (Auto) 0.2 mg/dL 04/18/24 14:16 Leukocyte Esterase (Auto) 0 Howard/uL 04/18/24 14:16 Date of Service: 04/04/24 EXAMINATION: US RETROPERITONEAL COMPLETE (RENAL) FINDINGS: RIGHT KIDNEY: 11.8 x 3.9 x 4.7 cm (SAG x AP x TRV). The kidney is normal in size, contour, and echogenicity. Renal cortical thickness is normal. No calculi or focal parenchymal lesions. No hydronephrosis. LEFT KIDNEY: 12.0 x 6.2 x 4.4 cm (SAG x AP x TRV). The kidney is normal in size, contour, and echogenicity. Renal cortical thickness is normal. No calculi or focal parenchymal lesions. No hydronephrosis. BLADDER: Well distended and normal. Bilateral ureteral jets are demonstrated. Prevoid bladder volume is 308 mL. Postvoid bladder volume is 39.0 mL. IMPRESSION: 1. Normal ultrasound of the bilateral kidneys. 2. Small post void residual volume in the urinary bladder. Assessment & Plan Assessment & Plan (1) Mixed incontinence urge and stress: Code(s): N39.46 - Mixed incontinence Category: Medical Plan In office urinalysis results reviewed with the patient today; as noted above. PVR 0 mL. Discussed at length potential causes for lower urinary tract symptoms patient is experiencing as well as further treatment options; this was discussed at length. Recent retroperitoneal ultrasound results reviewed with the patient today; as noted above. Information provided for pelvic floor therapies. Discussed bladder triggers/irritants. Stop oxybutynin. Start Myrbetriq as discussed and prescribed. Discussed possible near future in office cystoscopy and or urodynamics for further assessment evaluation. Follow-up in 1-3 months with imaging to be completed prior; or sooner with any issues, concerns, and or questions. Orders: Orders AMB Post Void Residual by ultrasound 04/18/24 N39.46 - Mixed incontinence AMB Urinalysis Automated 04/18/24 Z13.9 - Encounter for screening, unspecified Medications: New mirabegron ER (Myrbetriq) 25 mg PO DAILY 30 tabs 1RF 30 days R39.15 - Urgency of urination, N30.10 - Interstitial cystitis (chronic) without hematuria, R35.1 - Nocturia, N32.81 - Overactive bladder Discontinued oxybutynin chloride ER Discontinued Reason: Doctor's Order 10 mg PO DAILY 30 days 30 tabs 3RF N32.81 - Overactive bladder Patient Instructions: The patient had an opportunity to ask questions regarding the treatment plan. All questions were answered. Physical exam, labs, and imaging were discussed and reviewed in detail. As well as risks, benefits, and discussion of treatment choices. No major barriers to understanding were identified. The patient expressed understanding and agreement with the above treatment plan. The patient was made aware they should contact our office by phone for worsening of their current condition, the appearance of new symptoms, or with any questions or concerns. Compliance is encouraged with any medications and follow up testing that is ordered. It is a privilege to be allowed the opportunity to participate in? your urological care.? Again, if you have any questions or concerns If you have any questions or concerns please do not hesitate to contact me. The office is [phone]. This note is constructed using voice recognition software. While every effort has been made to ensure accuracy senior master scheduler errors may have been included. Yours sincerely, GALO Tripp-BIBIANA Coding Level of Care Code Est Pt Level 4 (73237) Diagnoses Mixed incontinence urge and stress N39.46 CPT Codes Post Residual Void - PVR CPT Code: 07304-Ayts Void Residual by ultrasound ([id number])
== END 2024-04-18 14:24 | disposition home or self-care (01) ==
PROVIDERS: PCP Family Medicine; Visit Provider Nurse Practitioner Family
DX: N39.46 Mixed incontinence (principal)
CPT/HCPCS: 99214

== ENCOUNTER → 2024-04-18 13:45 | Outpatient (BNVA) | payer OTHER, SELFPAY | PROVIDERS: PCP Family Medicine; Visit Provider Nurse Practitioner Family | DX: N39.46 Mixed incontinence (principal) | CPT/HCPCS: 51798; 81003; 99212 ==

== ENCOUNTER 2024-06-07 12:10 | Outpatient (AMB) | payer OTHER, SELFPAY ==
--- NOTE | 2024-06-07 12:10 | A.OFFVIS_ITS ---
Intake Visit Reasons: 7w follow up Intake Note: Patient presents today for televisit follow visit to establish treatment for : incontinence Urology Medication: d/c oxybutynin, myrbetriq Allergies to Antibiotic: none Blood Thinner: none Betting Agency Manager Required: No Accompanied by: Self / Same As Patient Allergies lisinopril Allergy (Intermediate, Verified 06/07/24 12:28) cough Medication List - Last Reconciled 06/07/24 by EUGENE Tripp amlodipine 10 mg PO DAILY 90 days blood pressure test kit-medium to take blood pressure daily levonorgestrel (Mirena) intrauterine losartan 100 mg PO DAILY 90 days mirabegron ER (Myrbetriq) 25 mg PO DAILY 30 days HPI Comments Details: Marilee is a very pleasant 44-year-old female patient of Dr. Wan. She has a past medical history of hypertension and obesity. She is being followed up on today via video telehealth. In discussion with the patient today she reports feeling Myrbetriq 25 mg daily has been helpful in episodes of urinary urgency and frequency she had been experiencing however she does continue to no episodes of stress incontinence. Previous workup has included a retroperitoneal ultrasound 04/15 noting bilateral kidneys with no calculi, lesions, and or hydronephrosis. The bladder is well distended and normal. Bladder jets are demonstrated. Pre void bladder volume is approximately 300 mL. Postvoid bladder volume is approximately 40 mL. She continues utilizing 1-3 pads daily. She otherwise denies nocturia, hematuria, dysuria, foul smelling urine, changes urinary stream, flank pain, fever, and or chills. She had previously trialed oxybutynin with no improvement in lower urinary tract symptoms. Discussed at length potential causes of lower urinary tract symptoms patient is experiencing as well as further treatment options. We discussed pelvic floor exercises. She otherwise denies any other issues or concerns at this time. [facility] Medical History Hypertension Obesity (BMI 30-39.9) Surgical History No pertinent past surgical history Family History Family/Other HTN (hypertension) Social History Household Members Other:: daughter Housing: Apartment Alcohol intake: never Patient Tobacco Use Status: Never used Tobacco e-Cigarette/Vaping Use: Never Used Second Hand Smoke Exposure: No Substance Use Type: Marijuana service: No Current occupational status: unemployed Sexual orientation: Straight/Heterosexual Gender identity: Female Cognitive needs: No Hearing needs: No Vision needs: No Female Reproductive History Menstrual Age of Menarche: 10 Review of Systems Const All systems reviewed & are unremarkable except as noted in HPI and below Reports as per HPI Eyes Reports no additional complaints ENT Reports no additional complaints Card Reports as per HPI Resp Reports no additional complaints GI Denies abdominal pain and Denies nausea Musc Denies no additional complaints Neuro Reports no additional complaints Physical Exam Const General: cooperative, healthy appearing, comfortable, no acute distress, well developed, alert and awake Orientation/consciousness: patient oriented x3 Resp Effort & Inspection: normal respiratory effort and able to speak in complete sentences Neuro General: patient oriented x3 Psych Appearance: grossly normal and well kempt Mental Status: mental status grossly normal Speech and movement: Normal speech and movement present Affect: normal affect Attitude: cooperative Thought process: Normal thought process present Thought content: Normal thought content present Insight: Fair insight present (Psych) Judgement: Fair judgement present (Psych) Telehealth Telehealth Telehealth Platform: [facility] Location of provider rendering services: practice address Location of patient: address on file Patient Identification confirmed using: Name, : Yes Telehealth method: video Patient verbally consented to treatment: Yes Patient verbally consented to billing insurance company: Yes Patient informed of any privacy concerns related to visit: Yes Minutes spent on Phone/Video with Pt.: 15 Assessment & Plan Assessment & Plan (1) Mixed incontinence urge and stress: Code(s): N39.46 - Mixed incontinence Category: Medical Plan Discussed at length potential causes for lower urinary tract symptoms patient is experiencing as well as further treatment options; this was discussed at length. Information provided for pelvic floor therapies. Discussed bladder triggers/irritants. Continue Myrbetriq as discussed and prescribed; refill provided. Discussed in office urodynamics for further assessment evaluation of stress incontinence. Will schedule for urodynamics Follow-up per doctor's orders; or sooner with any issues, concerns, and or questions. Medications: Refilled mirabegron ER (Myrbetriq) 25 mg PO DAILY 30 days 30 tabs 3RF N30.10 - Interstitial cystitis (chronic) without hematuria, N32.81 - Overactive bladder, R35.1 - Nocturia, R39.15 - Urgency of urination Patient Instructions: The patient had an opportunity to ask questions regarding the treatment plan. All questions were answered. Physical exam, labs, and imaging were discussed and reviewed in detail. As well as risks, benefits, and discussion of treatment choices. No major barriers to understanding were identified. The patient expressed understanding and agreement with the above treatment plan. The patient was made aware they should contact our office by phone for worsening of their current condition, the appearance of new symptoms, or with any questions or concerns. Compliance is encouraged with any medications and follow up testing that is ordered. It is a privilege to be allowed the opportunity to participate in? your urological care.? Again, if you have any questions or concerns If you have any questions or concerns please do not hesitate to contact me. The office is [phone]. This note is constructed using voice recognition software. While every effort has been made to ensure accuracy relationship management lead errors may have been included. Yours sincerely, EUGENE Tripp Coding Level of Care Code Tele Est Pt Level 3 (63165) Diagnoses Mixed incontinence urge and stress N39.46 Time Spent (min) 15
== END 2024-06-07 16:28 | disposition home or self-care (01) ==
LOC: HO.HUSH 12:10
PROVIDERS: PCP Family Medicine; Visit Provider Nurse Practitioner Family
DX: N39.46 Mixed incontinence (principal)
CPT/HCPCS: 99213

== ENCOUNTER → 2024-06-07 12:10 | Outpatient (BNVA) | payer OTHER, SELFPAY | PROVIDERS: PCP Family Medicine; Visit Provider Nurse Practitioner Family ==

== ENCOUNTER 2024-06-13 09:18 | Outpatient (AMB) | payer OTHER, SELFPAY ==
--- NOTE | 2024-06-13 09:25 | MHC.OFFVIS ---
Vital Signs 06/13/24 09:26 Height 5 ft 3 in Weight 178 lb 2.136 oz BMI 31.6 BP 154/78 H Blood Pressure Location Rt brachial Position Sitting Pulse 70 Pulse Source Pulse Oximeter Pulse Oximetry (%) 100 Oxygen Delivery Method Room Air Intake Visit Reasons: Colonoscopy Screening Intake Note: Relevant Flags or Indicators ? Requires Emergency Medicine Nurse Practitioner? N May presents in office today for a scheduled colo consult CC; Since last visit; labs ordered ? none. Rx ordered ? no. Diagnostics/images ordered ? renal + bladder US. Relevant GI Sx as reported per pt; None ? Hx of any recent surgeries; None Pertinent fmhx? None Emergency Medicine Nurse Practitioner Required: No Allergies lisinopril Allergy (Intermediate, Verified 06/13/24 09:26) cough HPI HPI Colonoscopy Screening: Details: 44 year old? female with past medical history of hypertension is here today for pre colonoscopy screening.? Patient was sent to us by her PCP.? This is her first colonoscopy screening.? Patient denies any gastrointestinal symptoms in the past or at present.? Denies any personal or family history of gastrointestinal disease, colon polyps, or CRC.? Patient never had anesthesia in the past.? Negative for history of sleep apnea.? Denies any history of cardiac, renal, pulmonary, or hepatic disease.?? No history of infectious? diseases like hepatitis A, B, C, HIV or tuberculosis.? Patient is not on any anticoagulation [facility] Medical History Hypertension Obesity (BMI 30-39.9) Surgical History No pertinent past surgical history Family History Family/Other HTN (hypertension) Social History Household Members Other:: daughter Housing: Apartment Alcohol intake: never Patient Tobacco Use Status: Never used Tobacco e-Cigarette/Vaping Use: Never Used Second Hand Smoke Exposure: No Substance Use Type: Marijuana service: No Current occupational status: unemployed Sexual orientation: Straight/Heterosexual Gender identity: Female Cognitive needs: No Hearing needs: No Vision needs: No Female Reproductive History Menstrual Age of Menarche: 10 Review of Systems Const Denies weight gain and Denies weight loss ENT Reports no additional complaints, Denies dysphagia and Denies odynophagia Card Reports no additional complaints Resp Reports no additional complaints GI Denies abdominal pain, Denies belching, Denies melena, Denies bloating, Denies change in bowel habits, Denies dysphagia, Denies excessive flatus, Denies dyspepsia, Denies heartburn, Denies diarrhea, Denies loose stools, Denies nausea, Denies odynophagia and Denies vomiting Musc Reports no additional complaints Neuro Reports no additional complaints Psych Reports no additional complaints Endo Reports no additional complaints Physical Exam Vital Signs: Last Vital Signs Pulse 70 06/13/24 09:26 BP 154/78 H 06/13/24 09:26 Pulse Ox 100 06/13/24 09:26 Oxygen Delivery Method Room Air 06/13/24 09:26 BMI result Body Mass Index 31.6 Const General: healthy appearing and no acute distress Nutritional Appearance: obese Orientation/consciousness: patient oriented x3 Resp Effort & Inspection: normal respiratory effort, able to speak in complete sentences, no tracheal deviation and symmetric chest movement Auscultation: clear to auscultation bilaterally Cardio Rate: regular rate GI Inspection: Yes normal to inspection, No distended and Yes obesity Palpation (GI): Soft to palpation, not firm, nontender and No hepatosplenomegaly present Auscultation: normal bowel sounds General: Yes no CVA tenderness Back/Spine/Pelvis Back: no CVA tenderness Skin General skin exam: elasticity normal, turgor normal and dry skin Neuro General: patient oriented x3 Psych Appearance: grossly normal Mental Status: mental status grossly normal Assessment & Plan Assessment & Plan (1) Screening for colon cancer: Code(s): Z12.11 - Encounter for screening for malignant neoplasm of colon Category: Medical Plan Patient denies any GI, cardiac or respiratory symptoms.? Patient never had anesthesia in the past.? Denies any history of sleep apnea.? No history infectious diseases in the past or present.? Not on any anticoagulation therapy.? No family or personal history of colon cancer or polyps.? Patient denies melena, hematochezia, unintentional weight loss or ribbon like stools.? Discussed at length the pre-procedure,? prep, diet & medications as well as what to expect prior, during and after the procedure.?? Stressed the importance of good bowel prep.? Recommended the use of Vaseline or Calmoseptine OTC & baby wipes with bowel movements to promote comfort.? ?Patient verbalizes understanding and agrees to plan of care.? She was given the opportunity to ask questions and all questions answered.? We will see her after the procedure.? Medications: New bisacodyl (Dulcolax (bisacodyl)) take 4 tabs at noon the day before your colonoscopy 20 mg (4 x 5 mg) PO ONCE 1 day 4 tabs 0RF Z12.11 - Encounter for screening for malignant neoplasm of colon polyethylene glycol 3350 (Miralax) As directed by gastroenterology department at [facility] 238 grams PO ONCE 238 grams 0RF Z12.11 - Encounter for screening for malignant neoplasm of colon Coding Level of Care Code New Pt Level 3 (32646) Diagnoses Screening for colon cancer Z12.11 Time Spent (min) 40 Comment 30 minutes spent with patient and additional 10 minutes spent reviewing her records
[2024-06-13 09:26] VITALS: BP 154/78; PULSE 70; O2SAT 100; BMI 31.6
== END 2024-06-13 10:10 | disposition home or self-care (01) ==
PROVIDERS: PCP Family Medicine; Visit Provider Nurse Practitioner Family
DX: Z12.11 Encounter for screening for malignant neoplasm of colon (principal); Z01.818 Encounter for other preprocedural examination
CPT/HCPCS: 99203

== ENCOUNTER → 2024-06-13 09:18 | Outpatient (BNVA) | payer OTHER, SELFPAY | PROVIDERS: PCP Family Medicine; Visit Provider Nurse Practitioner Family | DX: Z12.11 Encounter for screening for malignant neoplasm of colon (principal); I10 Essential (primary) hypertension | CPT/HCPCS: 99202 ==

== ENCOUNTER 2024-06-29 09:13 | Outpatient (REF) | payer OTHER, SELFPAY ==
[2024-06-29 10:12] LABS: Estimated Average Glucose 114 mg/dL; Hemoglobin A1C 127.0442 umol/L; Hemoglobin A1c % 5.6 % (<6.0)
[2024-06-29 10:35] LABS: Appearance Urine Cloudy; Color Urine Yellow; Glucose Urine UA Negative (Negative); Leukocyte Esterase Urine Trace (Negative); Nitrite Urine Negative (Negative); PH 5.5 (5.0-9.0); Specific Gravity - Urine 1.025 (1.005-1.025); UMIC TRIGGER UA YES; Urine Blood Negative (Negative); Urine Ketones Negative (Negative); Urine Protein Trace mg/dL (Neg-Trace)
[2024-06-29 10:40] LABS: Alanine Aminotransferase 37 U/L (0-31); Albumin Level 4.4 g/dL (3.5-5.0); Alkaline Phosphatase 61 U/L (39-117); Anion Gap 11 (12-20); Aspartate Amino Transferase 24 U/L (5-31); Bilirubin Total 0.4 mg/dL (0.0-1.0); Blood Urea Nitrogen 17 mg/dL (9-16); Calcium 9.1 mg/dL (8.4-10.2); Carbon Dioxide 26 mmol/L (22-29); Chloride 108 mmol/L (96-108); Estimated Glomerular Filt Rate > 60; Glucose Fasting 97 mg/dL (60-99); Potassium 3.6 mmol/L (3.3-5.1); Sodium 141 mmol/L (135-145); Total Protein 7.3 g/dL (6.5-8.0)
[2024-06-29 10:40] LABS: Bacteria Urine 4+ (None Seen); Hyaline Casts Urine 0-2 /LPF (0-2); RBC Urine 0-2 /HPF (0-2); WBC Urine 0-5 /HPF (0-5)
== END 2024-06-29 09:14 | disposition home or self-care (01) ==
LOC: HO.LAB 09:13
PROVIDERS: PCP Family Medicine; Visit Provider Family Medicine
DX: Z00.00 Encounter for general adult medical examination without abnormal findings (principal); R73.01 Impaired fasting glucose; R74.01 Elevation of levels of liver transaminase levels
CPT/HCPCS: 36415; 80053; 81001; 81003; 83036

== ENCOUNTER 2024-06-30 13:25 | Outpatient (AMB) | payer OTHER, SELFPAY ==
--- NOTE | 2024-06-30 13:27 | MHC.PC.OV ---
Vital Signs 06/30/24 13:32 Height 5 ft 3 in Weight 180 lb 2 oz BMI 31.9 BP 100/66 Blood Pressure Location Lt brachial Position Sitting Respiration 16 Pulse 96 Pulse Source Pulse Oximeter Temp 98.3 F Temp Source Oral Pulse Oximetry (%) 97 Oxygen Delivery Method Room Air Intake Visit Reasons: FullowUpElevatedLiverEnzymes Intake Note: f/u for elevated liver enzymes Allergies lisinopril Allergy (Intermediate, Verified 06/30/24 13:31) cough Tobacco use date assessed: 03/09/24 Dental Screening Dental Screen Date: 12/14/23 HPI FullowUpElevatedLiverEnzymes HPI Details 44 y/o female presents to f/u elevated ALT, pre-diabetes. Last A1c 03/09/24 5.9%. Labs drawn 06/29/24. Reviewed labs with pt. A1c 5.6%. AST 24, ALT 37. 4+ urine bacteria seen. Blood pressure today 100/66, 96p. She is on amlodipine 10mg, losartan 100mg daily. [facility] Medical History Hypertension Obesity (BMI 30-39.9) Surgical History No pertinent past surgical history Family History Family/Other HTN (hypertension) Social History Household Members Other:: daughter Housing: Apartment Alcohol intake: never Patient Tobacco Use Status: Never used Tobacco e-Cigarette/Vaping Use: Never Used Second Hand Smoke Exposure: No Substance Use Type: Marijuana service: No Current occupational status: unemployed Sexual orientation: Straight/Heterosexual Gender identity: Female Cognitive needs: No Hearing needs: No Vision needs: No Female Reproductive History Menstrual Age of Menarche: 10 Questionnaire PHQ-9 Over the last 2 weeks, how often have you been bothered by any of the following problems? 1. Little interest or pleasure in doing things: not at all 2. Feeling down, depressed, or hopeless: several days 3. Trouble falling or staying asleep, or sleeping too much: nearly every day 4. Feeling tired or having little energy: nearly every day 5. Poor appetite or overeating: several days 6. Feeling bad about yourself - or that you are a failure or have let yourself or your family down: not at all 7. Trouble concentrating on things, such as reading the newspaper or watching television: not at all 8. Moving or speaking so slowly that other people could have noticed. Or the opposite - being so fidgety or restless that you have been moving around a lot more than usual: not at all 9. Thoughts that you would be better off or of hurting yourself in some way: not at all Total score: 8 Depression Screening Interpretation: Positive Depression Screening Done: Yes 74741 - PHQ-9 Billing: Yes Source: Developed by Drs. Mark Anthony Hopper, Libby Hinojosa, Brayan Seals and colleagues, with an educational marcial from [email or web address]. Thrive Questionnaire Date Thrive assessed: 12/14/23 I am a: Patient What is your living situation today?: I have a steady place to live Within the past 12 months, did the food you bought not last and you didn't have the money to get more?: Never true Within the past 12 months, did you worry whether your food would run out before you got money to buy more?: Never true Do you have trouble paying for medicines?: No Do you have trouble getting transportation to medical appointments?: No Do you have trouble paying your heating and electricity bill?: No Do you have trouble taking care of your child, family member or friend?: No Do you have trouble with day-to-day activities such as bathing, preparing meals, shopping, managing finances, etc.?: No Are you currently unemployed and looking for a job?: Yes Are you interested in more education?: No Please select the resources that you would like help with: None Currently or been in a relationship where the following occur: No concerns reported THRIVE Score: 0 AUDIT C Alcohol Use Questionnaire (AUDIT-C) 1. How often do you have a drink containing alcohol?: Monthly or less 2. How many drinks containing alcohol do you have on a typical day when you are drinking?: 1 or 2 3. How often do you have six or more drinks on one occasion?: Never Total Score: 1 GILBERT-7 AMB Questionnaire GILBERT-7 Date GILBERT - 7 assessed: 12/14/23 Feeling nervous, anxious, or on edge: 0 = Not at all Not being able to stop or control worryin = Not at all Worrying too much about different things: 0 = Not at all Trouble relaxin = Not at all Being so restless that it is hard to sit still: 0 = Not at all Becoming easily annoyed or irritable: 0 = Not at all Feeling afraid as if something awful might happen: 0 = Not at all Total GILBERT-7 score (0-4 normal; 5-9 mild; 10-14 moderate; 15-21 severe): 0 Source: Developed by Drs. Mark Anthony Hopper, Libby Hinojosa, Brayan Seals and colleagues, with an educational marcial from [email or web address]. Review of Systems Const Denies chills, Denies fatigue, Denies fever(s), Denies headache(s) and Denies weakness ENT Denies dizziness and Denies headache(s) Card Denies chest pain, Denies lightheadedness, Denies dyspnea and Denies other (Palpitations) Resp Denies cough, Denies dyspnea, Denies wheezing and Denies other ( shortness of breath) Musc Denies numbness and Denies tingling Neuro Denies dizziness, Denies headache(s), Denies numbness, Denies tingling, Denies paresthesias and Denies weakness Psych Denies anxiety and Denies depression Endo Denies fatigue Aller/Immun Denies wheezing Physical exam (Primary Care) Vital Signs: Last Vital Signs Temp 98.3 F 06/30/24 13:32 Pulse 96 06/30/24 13:32 Resp 16 06/30/24 13:32 BP 100/66 06/30/24 13:32 Pulse Ox 97 06/30/24 13:32 Oxygen Delivery Method Room Air 06/30/24 13:32 BMI result Body Mass Index 31.9 Tobacco/Smoking Status: Tobacco use Status Tobacco use date assessed 03/09/24 06/30/24 13:29 Patient Tobacco Use Status Never used Tobacco 06/30/24 13:29 e-Cigarette/Vaping Use Never Used 06/30/24 13:29 PHQ-9: PHQ-9 Score PHQ-9: Total score 8 06/30/24 13:40 Depression Screening Interpretation: Positive Thrive Assessment: Date of Thrive Assessment Date Thrive assessed 12/14/23 06/30/24 13:29 Currently or been in a relationship where the following occur: No concerns reported Const General: no acute distress and well developed Nutritional Appearance: well nourished Orientation/consciousness: patient oriented x3 HENMT Head: Yes normocephalic and Yes atraumatic Eyes General: appearance normal, both eyes and all related structures Pupils: Equal, round and reactive pupils present EOM: EOMs intact bilaterally Resp Effort & Inspection: normal respiratory effort Auscultation: clear to auscultation bilaterally Cardio Rate: regular rate Rhythm: regular rhythm Heart sounds: S1 normal heart sound present, S2 normal heart sound present, no gallops, no murmurs and no rubs Neuro General: patient oriented x3 and gait normal Cranial nerves: Yes Equal, round and reactive pupils present Psych Affect: normal affect Coding Level of Care Code Est Pt Level 4 (94324) Diagnoses Pre-diabetes R73.03 Elevated ALT measurement R74.01 Hypertension I10 Additional Codes PHQ-9 - 18253 - PHQ-9 Billing: Yes ([id number]) Assessment & Plan Assessment & Plan (1) Pre-diabetes: Code(s): R73.03 - Prediabetes Category: Medical Plan: A1c?5.6?now?in?top?normal?range Encouraged?ongoing?diet?low?in?sugars?and?starches.??Encouraged?exercise?and?weight?loss (2) Elevated ALT measurement: Code(s): R74.01 - Elevation of levels of liver transaminase levels Category: Medical Plan: ALT?has?improved?though?still?mildly?elevated Continue?to?work?at?weight?loss?and?good?hydration Will?recheck?prior?to?next?visit (3) Hypertension: Code(s): I10 - Essential (primary) hypertension Category: Medical Plan: Blood?pressure?is?controlled?on?current?medication No?medication?changes?today
[2024-06-30 13:32] VITALS: BP 100/66; PULSE 96; RESP 16; TEMP 36.8; O2SAT 97; BMI 31.9
== END 2024-06-30 13:51 | disposition home or self-care (01) ==
PROVIDERS: PCP Family Medicine; Visit Provider Family Medicine
DX: R73.03 Prediabetes (principal); R74.01 Elevation of levels of liver transaminase levels; I10 Essential (primary) hypertension

== ENCOUNTER → 2024-06-30 13:25 | Outpatient (BNVA) | payer OTHER, SELFPAY | PROVIDERS: PCP Family Medicine; Visit Provider Family Medicine | DX: R73.03 Prediabetes (principal); R74.01 Elevation of levels of liver transaminase levels; I10 Essential (primary) hypertension | CPT/HCPCS: 96127; 99212 ==

== ENCOUNTER 2024-08-25 10:41 | Outpatient (AMB) | payer OTHER, SELFPAY ==
--- NOTE | 2024-08-25 10:54 | MHC.OFFVIS ---
Intake Visit Reasons: Urodynamic Intake Note: Patient is present for URODYNAMIC Urology Medication:MYRBETRIQ Antibiotic Allergy:NONE Blood Thinner:NONE Sweatband Maker Required: No Allergies lisinopril Allergy (Intermediate, Verified 08/25/24 10:54) cough Medication List - Last Reconciled 08/25/24 by Milton Rockwell MD amlodipine 10 mg PO DAILY 90 days bisacodyl (Dulcolax (bisacodyl)) 20 mg (4 x 5 mg) PO ONCE 1 day blood pressure test kit-medium to take blood pressure daily levonorgestrel (Mirena) intrauterine losartan 100 mg PO DAILY 90 days mirabegron ER (Myrbetriq) 50 mg PO DAILY polyethylene glycol 3350 (Miralax) 238 grams PO ONCE HPI Comments Details: 08/25/24--May is here for urodynamics. The patient has complaints of urinary incontinence. Interpretation: During the filling phase there was sensory urgency was noted, bladder capacity was [] less than average, the patient felt that she was at capacity at 269mL and voided 304mL. Leakage was observed during cough or valsalva stress. Findings: objective SHAY observed, less than average functional bladder capacity, detrusor overactivity. EMG- Appropriate changes in the waveforms were noted through out the study. Discussed behaviorial modification and pelvic floor PT, increase myrbetriq to 50 mg daily PFSH Medical History Hypertension Obesity (BMI 30-39.9) Surgical History No pertinent past surgical history Family History Family/Other HTN (hypertension) Social History Household Members Other:: daughter Housing: Apartment Alcohol intake: never Patient Tobacco Use Status: Never used Tobacco e-Cigarette/Vaping Use: Never Used Second Hand Smoke Exposure: No Substance Use Type: Marijuana service: No Current occupational status: unemployed Sexual orientation: Straight/Heterosexual Gender identity: Female Cognitive needs: No Hearing needs: No Vision needs: No Female Reproductive History Menstrual Age of Menarche: 10 Office Procedures Urodynamic Studies Consent Discussed risk and benefit or proposed procedure with the patient. Information consent for procedure given to the patient. Discussed technical aspects, risks, benefits and alternatives in full. Addressed all of the patient's questions and concerns regarding the procedure. The patient demonstrated knowledge and understanding. They wish to proceed with this procedure. Preparation The patient was prepped in the usual manner. A chair upholsterer was present and in the room. Genitalia was prepped with betadine solution in a sterile manner. Procedure Cystometrogram Vaginal/rectal catheter type: vaginal First sensation at (mL): 100 mL First desire at (mL): 124 mL Strong desire to void occured at (mL): 181 mL Strong desire detrussor pressure (cm H2O): 28 Maximum fill (mL): 269 mL Maximum flow rate (mL/second): 8.7 mL/s Prep: The patient was prepped in the usual manner. A chair upholsterer was present and in the room. Genitalia was prepped with betadine solution in a sterile manner. 69649-Xuxngrh-Tduulacxcazv First 37818-Yklv/Urinary Muscle Study 87505-Ktksh-Iwyvlywdg Pressure Test Procedure code (CPT) selection complete Office Meds nitrofurantoin monohydrate/macrocrystals 100 mg capsule Performing Provider: Milton Rockwell MD Performing Location[facility] [place] [facility] Administered by: Ariel Moore LPN on 08/25/24 11:06 Dose Route Admin Location Dispensed Lot Number Expiration Date NDC Ice Cream Dipper 100 mg PO 1 cap Assessment & Plan Assessment & Plan (1) Mixed incontinence urge and stress: Code(s): N39.46 - Mixed incontinence Category: Medical (2) Pelvic floor weakness: Code(s): N81.89 - Other female genital prolapse Category: Medical (3) OAB (overactive bladder): Code(s): N32.81 - Overactive bladder Category: Medical Plan Increase myrbetriq to 50 mg, pelvic floor PT Orders: Orders AMB Urodynamics Studies 08/25/24 N39.46 - Mixed incontinence Medications: New mirabegron ER (Myrbetriq) 50 mg PO DAILY 90 tabs 1RF Discontinued mirabegron ER Discontinued Reason: Doctor's Order 25 mg PO DAILY 30 days 30 tabs 3RF N30.10 - Interstitial cystitis (chronic) without hematuria, N32.81 - Overactive bladder, R35.1 - Nocturia, R39.15 - Urgency of urination Patient Instructions: The patient had an opportunity to ask questions regarding treatment plan. The patient expressed understanding and agreement with the above treatment plan. The patient is aware they should contact our office by phone for worsening of their current condition or the appearance of new symptoms. Compliance is encouraged with any medications and followup testing that is ordered. It is a privilege to be allowed the opportunity to participate in the urologic care of your patient. If you have any questions or concerns regarding treatment for the above conditions please do not hesitate to contact me. The office telephone contact is [phone]. This note is constructed in part using voice recognition software. While every effort has been made to ensure accuracy senior ui designer errors may have been included. Yours sincerely, Milton Rockwell MD Coding Level of Care Code Procedure Only Diagnoses Mixed incontinence urge and stress N39.46 Pelvic floor weakness N81.89 OAB (overactive bladder) N32.81 CPT Codes Urodynamic Studies - CPT: 58485-Vudrume-Nhpdzdergobi First ([id number]) Urodynamic Studies - CPT: 49272-Kibc/Urinary Muscle Study ([id number]) Urodynamic Studies - CPT: 53915-Wwaay-Xiohcftgf Pressure Test ([id number])
== END 2024-08-25 12:13 | disposition home or self-care (01) ==
PROVIDERS: PCP Family Medicine; Visit Provider Urology
DX: N39.46 Mixed incontinence (principal)
CPT/HCPCS: 51728; 51741; 51784; 51797

== ENCOUNTER → 2024-08-25 10:41 | Outpatient (BNVA) | payer OTHER, SELFPAY | PROVIDERS: PCP Family Medicine; Visit Provider Urology | DX: N39.46 Mixed incontinence (principal); N81.89 Other female genital prolapse; N32.81 Overactive bladder | CPT/HCPCS: 51728; 51741; 51784; 51797 ==

== ENCOUNTER 2024-11-30 11:28 | Outpatient (AMB) | payer OTHER, SELFPAY ==
--- NOTE | 2024-11-30 11:37 | MHC.OFFVIS ---
Intake Visit Reasons: 3M Follow Up Intake Note: Patient is present for a 3 month follow up Urology Medication:MYRBETRIQ Antibiotic Allergy:NONE Blood Thinner:NONE Ruby Software Developer Required: No Allergies lisinopril Allergy (Intermediate, Verified 11/30/24 11:38) cough Medication List - Last Reconciled 11/30/24 by Milton Rockwell MD amlodipine 10 mg PO DAILY 90 days blood pressure test kit-medium to take blood pressure daily losartan 100 mg PO DAILY 90 days mirabegron ER (Myrbetriq) 50 mg PO DAILY HPI Comments Details: 11/30/24-May is a 44-year-old female who is here for follow-up she was last seen in the office in August urodynamics were performed at that time she had sensory urgency noted as well as objective stress urinary incontinence was observed. The patient has been on anticholinergics Myrbetriq was increased to 50 mg and she was referred to pelvic floor physical therapy. The patient states that the physical therapy department did not call her for an appointment. She has noted improvement in urgency frequency but still leaks with coughing. I have discussed further treatment options to include urethral bulking. 08/25/24--May is here for urodynamics. The patient has complaints of urinary incontinence. Interpretation: During the filling phase there was sensory urgency was noted, bladder capacity was less than average, the patient felt that she was at capacity at 269mL and voided 304mL. Leakage was observed during cough or valsalva stress. Findings: objective SHAY observed, less than average functional bladder capacity, detrusor overactivity. EMG- Appropriate changes in the waveforms were noted through out the study. Discussed behaviorial modification and pelvic floor PT, increase myrbetriq to 50 mg daily [facility] Medical History Hypertension Obesity (BMI 30-39.9) Surgical History No pertinent past surgical history Family History Family/Other HTN (hypertension) Social History Household Members Other:: daughter Housing: Apartment Alcohol intake: never Patient Tobacco Use Status: Never used Tobacco e-Cigarette/Vaping Use: Never Used Second Hand Smoke Exposure: No Substance Use Type: Marijuana service: No Current occupational status: unemployed Sexual orientation: Straight/Heterosexual Gender identity: Female Cognitive needs: No Hearing needs: No Vision needs: No Female Reproductive History Menstrual Age of Menarche: 10 Review of Systems Const All systems reviewed & are unremarkable except as noted in HPI and below Reports no additional complaints Eyes Reports no additional complaints ENT Reports no additional complaints Card Reports no additional complaints Resp Reports no additional complaints GI Reports no additional complaints Reports as per HPI Musc Reports no additional complaints Skin/Breast Reports system reviewed and no additional complaints, except as documented Neuro Reports no additional complaints Psych Reports no additional complaints Endo Reports no additional complaints Brady/Lymph Reports no additional complaints Aller/Immun Reports no additional complaints Assessment & Plan Assessment & Plan (1) Mixed incontinence urge and stress: Code(s): N39.46 - Mixed incontinence Category: Medical (2) Pelvic floor weakness: Code(s): N81.89 - Other female genital prolapse Category: Medical (3) OAB (overactive bladder): Code(s): N32.81 - Overactive bladder Category: Medical (4) SHAY (stress urinary incontinence, female): Code(s): N39.3 - Stress incontinence (female) (male) Category: Medical (5) Intrinsic sphincter deficiency (ISD): Code(s): N36.42 - Intrinsic sphincter deficiency (ISD) Category: Medical Plan Continue Myrbetriq 50 mg daily. Pelvic floor physical therapy. Schedule urethral bulking, Bulkamid. Medications: Refilled mirabegron ER (Myrbetriq) 50 mg PO DAILY 90 tabs 3RF Patient Instructions: The patient had an opportunity to ask questions regarding treatment plan. The patient expressed understanding and agreement with the above treatment plan. The patient is aware they should contact our office by phone for worsening of their current condition or the appearance of new symptoms. Compliance is encouraged with any medications and followup testing that is ordered. It is a privilege to be allowed the opportunity to participate in the urologic care of your patient. If you have any questions or concerns regarding treatment for the above conditions please do not hesitate to contact me. The office telephone contact is [phone]. This note is constructed in part using voice recognition software. While every effort has been made to ensure accuracy contract management specialist errors may have been included. Yours sincerely, Milton Rockwell MD Coding Level of Care Code Est Pt Level 4 (79429) Diagnoses Mixed incontinence urge and stress N39.46 Pelvic floor weakness N81.89 OAB (overactive bladder) N32.81 SHAY (stress urinary incontinence, female) N39.3 Intrinsic sphincter deficiency (ISD) N36.42
--- OUTSIDE RECORDS SUMMARY | 2024-11-30 13:58 | XMS_ITS | Encounter Summary ---
Author Organization [employer] Address [address] [place] [address] Care Team Providers Care Steamship Agent Name Role Phone Unavailable Primary Care Provider Unavailabl e Encounter Details Date Type Department Care Team (Latest Contact Info) Description 06/06/2019 Abstract [facility] CONVERSIONS Dental, Provider, DDS Social History Tobacco Use Types Packs/Day Years Used Date Smoking Tobacco: Never Assessed Comments Unknown Sex and Gender Information Value Date Recorded Sex Assigned at Female 06/22/2022 10:16 AM EDT Legal Sex Female 10:16 AM EDT Gender Identity Female 06/22/2022 10:16 AM EDT Sexual Orientation Straight 06/22/2022 10 :16 AM EDT documented as of this encounter Plan of Treatment Not on file documented as of this encounter Visit Diagnoses Not on filedocumented in this encounter
--- OUTSIDE RECORDS SUMMARY | 2024-11-30 13:58 | XMS_ITS | Clinical Summary ---
Author Organization [employer] Address [address] [place] [address] Care Team Providers Care Setter Automatic Spinning Lathe Name Role Phone Unavailable Primary Care Provider Unavailabl e Social History Tobacco Use Types Packs/Day Years Used Date Smoking Tobacco: Never Assessed Comments Unknown Sex and Gender Information Value Date Recorded Sex Assigned at Female 06/22/2022 10:16 AM EDT Legal Sex Female 10:16 AM EDT Gender Identity Female 06/22/2022 10:16 AM EDT Sexual Orientation Straight 06/22/2022 10 :16 AM EDT Last Filed Vital Signs Vital Sign Reading Time Taken Comments Blood Pressure 138/78 09/06/2019 12:01 AM EST Pulse - - Temperature - - Respiratory Rate - - Oxygen Saturation - - Inhaled Oxygen Concentration - - Weight - - Height - - Body Mass Index - - Plan of Treatment Health Maintenance Due Date Last Done Comments CT Colonography 1978 Colonoscopy 1978 Colorectal Cancer Screening 1978 Depression Screening 1978 FIT DNA/Cologuard 1978 FIT 1978 FOBT 1978 Sigmoidoscopy 1978 Alcohol/Substance Use Screening 1990 Tobacco Screening 1990 Family Planning (PISQ) 1993 DTaP/Tdap/Td Vaccines (1 - Tdap) 1997 Hepatitis B Vaccines (1 of 3 - 19+ 3-dose series) 1997 Pap Smear 1999 Cervical Cancer Screening 2008 HPV/Cotest 2008 Mammogram 2018 COVID-19 Vaccine (1 - 2023-2 5 season) 2024 Influenza Vaccine (#1) 2024 Zoster Vaccines (1 of 2) 2028 RSV Patients and Pa tients Aged 60 years or older (1 - 1-dose 75+ series) 2053 HIB Vaccines Aged Out No longer eligi ble based on patient's age to complete this topic HPV Vaccines Aged Out No longer eligi ble based on patient's age to complete this topic Hepatitis A Vaccines Aged Out No long er eligible based on patient's age to complete this topic IPV Vaccines Aged Out No longer eligi ble based on patient's age to complete this topic Meningococcal Vaccine Aged Out No maximo amari eligible based on patient's age to complete this topic Pneumococcal Vaccine: Pediat rics (0 to 5 Years) and At-Risk Patients (6 to 49) Years) Aged Out No longer eligible b ased on patient's age to complete this topic RSV under 20 months Aged Out No longe r eligible based on patient's age to complete this topic Rotavirus Vaccines Aged Out No longer eligible based on patient's age to complete this topic
== END 2024-11-30 12:01 | disposition home or self-care (01) ==
LOC: HO.HUSH 11:28
PROVIDERS: PCP Family Medicine; Visit Provider Urology
DX: N39.46 Mixed incontinence (principal); N81.89 Other female genital prolapse; N32.81 Overactive bladder; N39.3 Stress incontinence (female) (male); N36.42 Intrinsic sphincter deficiency (ISD); Z13.9 Encounter for screening, unspecified
CPT/HCPCS: 99214

== ENCOUNTER → 2024-11-30 11:28 | Outpatient (BNVA) | payer OTHER, SELFPAY | PROVIDERS: PCP Family Medicine; Visit Provider Urology | DX: N39.46 Mixed incontinence (principal); N81.89 Other female genital prolapse; N32.81 Overactive bladder; N39.3 Stress incontinence (female) (male); N36.42 Intrinsic sphincter deficiency (ISD) | CPT/HCPCS: 81003; 99212 ==

== ENCOUNTER 2025-01-26 11:42 | Outpatient (REF) | payer OTHER, SELFPAY ==
--- OUTSIDE RECORDS SUMMARY | 2025-01-26 12:24 | XMS_ITS | Clinical Summary ---
Author Organization [employer] Address [address] [place] [address] Care Team Providers Care Tower Director Name Role Phone Unavailable Primary Care Provider [...] 1978 FIT 1978 FOBT 1978 Sigmoidoscopy 1978 Disability Screening 1978 Alcohol/Substance Use Screening 1990 Tobacco Screening 1990 Family Planning (PISQ) 1993 DTaP/Tdap/Td Vaccines (1 - Tdap) 1997 Hepatitis B Vaccines (1 of 3 - 19+ 3-dose series) 1997 Pap Smear 1999 Cervical Cancer Screening 2008 HPV/Cotest 2008 Mammogram 2018 COVID-19 Vaccine (1 - 2023-2 5 season) 2024 Influenza Vaccine (Season Ended) 2025 Zoster Vaccines (1 of 2) 2028 RSV [...] patient's age to complete this topic Meningococcal B Vaccine Aged Out No l onger eligible based on patient's age to complete [...]
[2025-01-26 12:48] LABS: Appearance Urine Clear; Color Urine Yellow; Glucose Urine UA Negative (Negative); Leukocyte Esterase Urine Negative (Negative); Nitrite Urine Negative (Negative); PH 6.5 (5.0-9.0); Specific Gravity - Urine 1.015 (1.005-1.025); Urine Blood Negative (Negative); Urine Ketones Negative (Negative); Urine Protein Negative (Neg-Trace)
[2025-01-26 13:02] LABS: Estimated Average Glucose 120 mg/dL; Hemoglobin A1c % 5.8 % (<6.0); Total Hemoglobin (HGBA1C) 3526.2761 umol/L
[2025-01-26 13:58] LABS: Alanine Aminotransferase 42 U/L (0-31); Albumin Level 4.7 g/dL (3.5-5.0); Alkaline Phosphatase 66 U/L (39-117); Anion Gap 9 (12-20); Aspartate Amino Transferase 25 U/L (5-31); Bilirubin Total 0.5 mg/dL (0.0-1.0); Blood Urea Nitrogen 14 mg/dL (9-16); Calcium 9.4 mg/dL (8.4-10.2); Carbon Dioxide 27 mmol/L (22-29); Chloride 110 mmol/L (96-108); Estimated Glomerular Filt Rate > 60; Glucose Fasting 102 mg/dL (60-99); Potassium 3.7 mmol/L (3.3-5.1); Sodium 142 mmol/L (135-145); Total Protein 7.3 g/dL (6.5-8.0)
== END 2025-01-26 11:43 | disposition home or self-care (01) ==
LOC: HO.LAB 11:42
PROVIDERS: PCP Family Medicine; Visit Provider Family Medicine
DX: Z00.00 Encounter for general adult medical examination without abnormal findings (principal); R74.01 Elevation of levels of liver transaminase levels; R73.01 Impaired fasting glucose
CPT/HCPCS: 36415; 80053; 81003; 83036

== ENCOUNTER 2025-02-01 10:37 | Outpatient (AMB) | payer OTHER, SELFPAY ==
--- NOTE | 2025-02-01 11:44 | MHC.PC.OV ---
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 Labs drawn 01/26/25. Reviewed labs with pt. A1c 5.8%. Elevated ALT of 42. AST 25. Blood pressure today 110/80, 86p. She is on amlodipine 10mg, losartan 100mg daily. She notes she could improve the sugars/starches in her diet. [facility] Medical History (Updated 12/15/24 @ 13:17 by Karen Maria RN) Heart murmur Pre-diabetes Depression with anxiety Hypertension Obesity (BMI 30-39.9) Surgical History No pertinent past surgical history Family History Family/Other HTN (hypertension) Social History Household Members Other:: daughter Housing: Apartment Alcohol intake: never Patient Tobacco Use Status: Never used Tobacco e-Cigarette/Vaping Use: Never Used Second Hand Smoke Exposure: No Substance Use Type: Marijuana service: No Current occupational status: unemployed Sexual orientation: Straight/Heterosexual Gender identity: Female Cognitive needs: No Hearing needs: No Vision needs: No Female Reproductive History Menstrual Age of Menarche: 10 Questionnaire PHQ-9 Over the last 2 weeks, how often have you been bothered by any of the following problems? 1. Little interest or pleasure in doing things: not at all 2. Feeling down, depressed, or hopeless: not at all 3. Trouble falling or staying asleep, or sleeping too much: several days 4. Feeling tired or having little energy: several days 5. Poor appetite or overeating: not at all 6. Feeling bad about yourself - or that you are a failure or have let yourself or your family down: not at all 7. Trouble concentrating on things, such as reading the newspaper or watching television: not at all 8. Moving or speaking so slowly that other people could have noticed. Or the opposite - being so fidgety or restless that you have been moving around a lot more than usual: not at all 9. Thoughts that you would be better off or of hurting yourself in some way: not at all Total score: 2 Source: Developed by Drs. Mark Anthony Hopper, Libby Hinojosa, Brayan Seals and colleagues, with an educational marcial from [employer]. Thrive Questionnaire Date Thrive assessed: 06/30/24 I am a: Patient What is your living situation today?: I have a steady place to live Within the past 12 months, did the food you bought not last and you didn't have the money to get more?: Never true Within the past 12 months, did you worry whether your food would run out before you got money to buy more?: Never true Do you have trouble paying for medicines?: No Do you have trouble getting transportation to medical appointments?: No Do you have trouble paying your heating and electricity bill?: No Do you have trouble taking care of your child, family member or friend?: No Do you have trouble with day-to-day activities such as bathing, preparing meals, shopping, managing finances, etc.?: No Are you currently unemployed and looking for a job?: Yes Are you interested in more education?: No Please select the resources that you would like help with: None Currently or been in a relationship where the following occur: No concerns reported THRIVE Score: 0 AUDIT C Alcohol Use Questionnaire (AUDIT-C) 1. How often do you have a drink containing alcohol?: Monthly or less 2. How many drinks containing alcohol do you have on a typical day when you are drinking?: 1 or 2 3. How often do you have six or more drinks on one occasion?: Never Total Score: 1 GILBERT-7 AMB Questionnaire GILBERT-7 Date GILBERT - 7 assessed: 12/14/23 Feeling nervous, anxious, or on edge: 0 = Not at all Not being able to stop or control worryin = Several days Worrying too much about different things: 1 = Several days Trouble relaxin = Not at all Being so restless that it is hard to sit still: 0 = Not at all Becoming easily annoyed or irritable: 0 = Not at all Feeling afraid as if something awful might happen: 0 = Not at all Total GILBERT-7 score (0-4 normal; 5-9 mild; 10-14 moderate; 15-21 severe): 2 Source: Developed by Drs. Mark Anthony Hopper, Libby Hinojosa, Brayan Seals and colleagues, with an educational marcial from [employer]. Review of Systems Const Denies chills, Denies fatigue, Denies fever(s), Denies headache(s) and Denies weakness ENT Denies dizziness and Denies headache(s) Card Denies dyspnea Resp Denies cough, Denies dyspnea, Denies wheezing and Denies other (shortness of breath) Musc Denies numbness and Denies tingling Neuro Denies dizziness, Denies headache(s), Denies numbness, Denies tingling and Denies weakness Psych Denies anxiety and Denies depression Endo Denies fatigue Aller/Immun Denies wheezing Physical exam (Primary Care) Vital Signs: Last Vital Signs Temp 98.3 F 02/01/25 11:46 Pulse 86 02/01/25 11:46 Resp 16 02/01/25 11:46 BP 110/80 02/01/25 11:46 Pulse Ox 98 02/01/25 11:46 Oxygen Delivery Method Room Air 02/01/25 11:46 BMI result Body Mass Index 32.0 Tobacco/Smoking Status: Tobacco use Status Tobacco use date assessed 03/09/24 02/01/25 11:44 Patient Tobacco Use Status Never used Tobacco 02/01/25 11:44 e-Cigarette/Vaping Use Never Used 02/01/25 11:44 PHQ-9: PHQ-9 Score PHQ-9: Total score 2 02/01/25 11:50 Thrive Assessment: Date of Thrive Assessment Date Thrive assessed 06/30/24 02/01/25 11:44 Currently or been in a relationship where the following occur: No concerns reported Const General: well developed; No acute distress Nutritional Appearance: well nourished Orientation/consciousness: patient oriented x3 HENMT Head: Yes normocephalic and Yes atraumatic Eyes General: appearance normal, both eyes and all related structures Pupils: Equal, round and reactive pupils present EOM: EOMs intact bilaterally Resp Effort & Inspection: normal respiratory effort Auscultation: clear to auscultation bilaterally Cardio Rate: regular rate Rhythm: regular rhythm Heart sounds: S1 normal heart sound present, S2 normal heart sound present, no gallops, no murmurs and no rubs Neuro General: patient oriented x3 and gait normal Cranial nerves: Yes Equal, round and reactive pupils present Psych Affect: normal affect Coding Level of Care Code Est Pt Level 4 (45288) Diagnoses HTN (hypertension) I10 Pre-diabetes R73.03 Elevated ALT measurement R74.01 Assessment & Plan Assessment & Plan (1) HTN (hypertension): Code(s): I10 - Essential (primary) hypertension Category: Medical Plan: Blood?pressure?is?well?controlled.??Goal?is?less?than?140/90 Continue?current?medications (2) Pre-diabetes: Code(s): R73.03 - Prediabetes Category: Medical Plan: A1c?5.8%.??Pre?diabetes?range Encouraged?diet?lower?in?sugars?and?starches Encouraged?weight?loss Will?continue?to?follow (3) Elevated ALT measurement: Code(s): R74.01 - Elevation of levels of liver transaminase levels Category: Medical Plan: ALT?he?slightly?higher?than?prior?measurement Will?check?ultrasound Encouraged?good?hydration?and?weight?loss Orders: Orders Comprehensive Bre[place]en. Panel Fast Today Z00.00 - Encounter for general adult medical examination without abnormal findings Lipid Panel Today Z00.00 - Encounter for general adult medical examination without abnormal findings TSH reflex Free T4 Today Z00.00 - Encounter for general adult medical examination without abnormal findings UA CC w/rflx Micro + Cult Today Z00.00 - Encounter for general adult medical examination without abnormal findings Microalbumin, Random (w Creat) Today I10 - Essential (primary) hypertension Hemoglobin A1c Today R73.01 - Impaired fasting glucose US abdomen sutton w elastography Today R74.01 - Elevation of levels of liver transaminase levels Complete Blood Count Auto Diff Today Z00.00 - Encounter for general adult medical examination without abnormal findings Medications: Refilled amlodipine 10 mg PO DAILY 90 days 90 tabs 1RF I10 - Essential (primary) hypertension
[2025-02-01 11:46] VITALS: BP 110/80; PULSE 86; RESP 16; TEMP 36.8; O2SAT 98; BMI 32.0
--- OUTSIDE RECORDS SUMMARY | 2025-02-01 12:25 | XMS_ITS | Clinical Summary ---
Author Organization [employer] Address [address] [place] [address] Care Team Providers Care Kindergartner Name Role Phone Unavailable Primary Care Provider [...]
== END 2025-02-01 12:04 | disposition home or self-care (01) ==
LOC: HO.HMCFM 10:38
PROVIDERS: PCP Family Medicine; Visit Provider Family Medicine
DX: I10 Essential (primary) hypertension (principal); R73.03 Prediabetes; R74.01 Elevation of levels of liver transaminase levels

== ENCOUNTER → 2025-02-01 10:37 | Outpatient (BNVA) | payer OTHER, SELFPAY | PROVIDERS: PCP Family Medicine; Visit Provider Family Medicine | DX: I10 Essential (primary) hypertension (principal); R73.03 Prediabetes; R74.01 Elevation of levels of liver transaminase levels | CPT/HCPCS: 99212 ==

== ENCOUNTER 2025-04-12 09:20 | Outpatient (REF) | payer OTHER, SELFPAY ==
--- NOTE | ~2025-04-12 | US_ITS ---
EXAMINATION: US ABDOMEN LIMITED WITH LIVER ELASTOGRAPHY CLINICAL INFORMATION: Elevated LFTs COMPARISON: None available. TECHNIQUE: Real-time imaging of the abdominal viscera. Noninvasive ultrasound liver fibrosis assessment is performed using Son ElastPQ point quantification shear wave elastography (pSWE) with a 5 MHz transducer. Multiple elastography samples are obtained. FINDINGS: PANCREAS: The visualized pancreatic head and body are normal in appearance. The remainder of the pancreas is obscured from visualization by the overlying bowel gas. LIVER: The liver is hyperechogenic. No intrahepatic biliary duct dilation is seen. The right lobe measures 17 cm in length. The left lobe measures 13 cm in length. The main portal vein is patent with a normal direction of flow and a continuously forward venous waveform. Shear wave elastography provides a median stiffness of 0.97 m/s (reference: normal median stiffness is 0.81 - 1.22 m/s). The IQR/median stiffness to assess sampling precision is 0.03 (reference: optimal IQR/median stiffness is under 0.3). GALLBLADDER: The gallbladder is physiologically distended without evidence of stones, sludge, polyps, wall thickening or pericholecystic fluid. COMMON BILE DUCT: Normal in caliber measuring 0.4 cm in diameter. RIGHT KIDNEY: No hydronephrosis. No renal calculi or focal parenchymal lesions. The kidney measures 11.1 cm in maximum dimension. FREE FLUID: None seen. US/US abdomen sutton w elastography IMPRESSION: 1. Hyperechogenic liver suggest underlying fatty changes. 2. Elastography: Liver elastography measurements are within normal (METAVIR Stage F0). The quality of the study is good. Electronically signed by: Guy Vernon MD 04/12/2025 10:09 AM EDT
--- OUTSIDE RECORDS SUMMARY | 2025-04-12 10:26 | XMS_ITS | Clinical Summary ---
Author Organization [employer] Address [address] [place] [address] Care Team Providers Care Occupational Therapist'S Assistant Name Role Phone Unavailable Primary Care Provider [...] 2023-2 5 season) 2024 Influenza Vaccine (#1) 2025 Zoster Vaccines (1 of 2) 2028 [...] Years) and At-Risk Patients (6 to 49) Years Aged Out No longer eligible b ased on patient's age to complete this topic RSV under 20 months Aged Out No longe r eligible based on patient's age to complete this topic Rotavirus Vaccines Aged Out No longer eligible based on patient's age to complete this topic
== END 2025-04-12 09:21 | disposition home or self-care (01) ==
LOC: HO.US 09:20
PROVIDERS: PCP Family Medicine; Visit Provider Family Medicine
DX: R74.01 Elevation of levels of liver transaminase levels (principal)
CPT/HCPCS: 76705; 76981

== ENCOUNTER → 2025-04-12 09:22 | Outpatient (BNV) | payer OTHER, SELFPAY | PROVIDERS: PCP Family Medicine; Visit Provider Radiology Diagnostic Radiology | DX: K76.0 Fatty (change of) liver, not elsewhere classified (principal) | CPT/HCPCS: 76705 ==